=== PATIENT | female | born 1945 | race African-American/Black ===

== ENCOUNTER 2016-11-15 13:15 | Inpatient (IN) | payer MEDICARE ==
[~2016-11-15] VITALS: Ht 167.6 cm; Wt 67.1 kg
[~2016-11-15 13:15] MED LIST: ACET-804 PO; ACET500T33 PO; ALPR0.25 PO; AMIO200T2 PO; ASCO100065 PO; ASCO500T2 PO; ASPI-482 PO; ASPI-630 PO; ATOR20TA58 PO; CARV25TA2 PO; CIPR500S2 PO; DABI150C PO; DILT120T3 PO; DILT240C2 PO; FERR-26 PO; FURO80TA3 PO; FURO80TA72 PO; HYDR-2758 PO; INSU100C4 SQ; INSU100I17 SQ; INSU100V13 SQ; LISI10TA2 PO; LOSA25TA4 PO; METR500T8 PO; NITR0.4T22 SL; PANT40TA5 PO; PARO10TA3 PO; POTA20TA84 PO; RAMI2.5C PO; RIVA20TA2 PO; SPIR25TA3 PO; TICA90TA PO
--- NOTE | 2016-11-15 13:32 | PHYS DOC ---
Past Medical History Past Medical History: CAD, Diabetes-Type II, Diverticulitis, GERD, High Cholesterol, Hypertension Past Surgical History: Colectomy, Hysterectomy, Pacemaker, Other Additional Past Surgical Histo: defibrillator, right inguinal hernia repair Alcohol Use: None Drug Use: None Adult General Chief Complaint Chief Complaint: ALTERED MENTAL STATUS HPI HPI Patient is a 71 year old -[place] female who presents with status. According neighbor she was last seen normal yesterday. Today she's confused and unable follow commands or talk appropriately. Review of Systems Review of Systems Unable to obtain secondary to patient's current condition Current Medications Current Medications Current Medications Medications (Trade) Dose Ordered Sig/Luis Start Time Stop Time Status Last Admin Dose Admin Acetaminophen (Acetaminophen Supp) 650 mg PRN Q6HRS PRN 11/15/16 16:15 Acetaminophen (Tylenol) 650 mg PRN Q6HRS PRN 11/15/16 16:15 Aspirin (Ecotrin) 325 mg [id number] 11/16/16 08:00 Enoxaparin Sodium (Lovenox 40mg Syringe) 40 mg Q24H 11/15/16 17:00 Labetalol HCl (Normodyne) 10 mg PRN Q10MIN PRN 11/15/16 16:15 Ondansetron HCl (Zofran) 4 mg PRN Q6HRS PRN 11/15/16 16:15 Sodium Chloride 1,000 ml @ 100 mls/hr Q10H 11/15/16 16:07 Sodium Chloride (Normal Saline Flush) 3 ml QSHIFT PRN 11/15/16 16:15 Allergies Allergies Allergies Coded Allergies Type Severity Reaction Last Updated Verified amlodipine Allergy Intermediate 12/19/13 Yes morphine Allergy Intermediate hallucinations 12/19/13 Yes Physical Exam Physical Exam Constitutional: Well developed, well nourished, no acute distress, non-toxic appearance. [] HENT: Normocephalic, atraumatic, bilateral external ears normal, oropharynx moist, no oral exudates, nose normal. [] Eyes: PERRLA, EOMI, conjunctiva normal, no discharge. [] Neck: Normal range of motion, no tenderness, supple, no stridor. [] Cardiovascular:Heart rate regular rhythm, no murmur [] Lungs & Thorax: Bilateral breath sounds clear to auscultation [] Abdomen: Bowel sounds normal, soft, no tenderness, no masses, no pulsatile masses. [] Skin: Warm, dry, no erythema, no rash. [] Back: No tenderness, no CVA tenderness. [] Extremities: No tenderness, no cyanosis, no clubbing, ROM intact, no edema. [] Neurologic: Alert, unable to follow commands but moves all extremities. expressive aphasia noted Current Patient Data Vital Signs Vital Signs Date Time Temp Pulse Resp B/P (MAP) Pulse Ox O2 Delivery O2 Flow Rate FiO2 11/15/16 13:20 97.6 86 18 157/98 (117) 100 Room Air 97.6 Lab Values Laboratory Tests Test 11/15/16 12:20 11/15/16 13:25 Urine Collection Type Unknown Urine Color Yellow Urine Clarity Clear Urine pH 5.5 Urine Specific [place] 1.015 Urine Protein 100 mg/dL (NEG-TRACE) Urine Glucose (UA) Negative mg/dL (NEG) Urine Ketones (Stick) Negative mg/dL (NEG) Urine Blood Trace (NEG) Urine Nitrite Negative (NEG) Urine Bilirubin Negative (NEG) Urine Urobilinogen Dipstick 1.0 mg/dL (0.2 mg/dL) Urine Leukocyte Esterase Trace (NEG) Urine RBC 3-5 /HPF (0-2) Urine WBC 1-4 /HPF (0-4) Urine Squamous Epithelial Cells Mod /LPF Urine Amorphous Sediment Present /HPF Urine Bacteria 0 /HPF (0-FEW) Urine Opiates Screen Neg (NEG) Urine Methadone Screen Neg (NEG) Urine Barbiturates Neg (NEG) Urine Phencyclidine Screen Neg (NEG) Urine Amphetamine/Methamphetamine Neg (NEG) Urine Benzodiazepines Screen Neg (NEG) Urine Cocaine Screen Neg (NEG) Urine Cannabinoids Screen Neg (NEG) Urine Ethyl Alcohol Neg (NEG) White Blood Count 4.6 x10^3/uL (4.0-11.0) Red Blood Count 3.62 x10^6/uL (3.50-5.40) Hemoglobin 10.4 g/dL (12.0-15.5) L Hematocrit 32.8 % (36.0-47.0) L Mean Corpuscular Volume 90 fL (79-100) Mean Corpuscular Hemoglobin 29 pg (25-35) Mean Corpuscular Hemoglobin Concent 32 g/dL (31-37) Red Cell Distribution Width 16.1 % (11.5-14.5) H Platelet Count 136 x10^3/uL (140-400) L Neutrophils (%) (Auto) 57 % (31-73) Lymphocytes (%) (Auto) 29 % (24-48) Monocytes (%) (Auto) 11 % (0-9) H Eosinophils (%) (Auto) 2 % (0-3) Basophils (%) (Auto) 1 % (0-3) Neutrophils # (Auto) 2.6 x10^3uL (1.8-7.7) Lymphocytes # (Auto) 1.3 x10^3/uL (1.0-4.8) Monocytes # (Auto) 0.5 x10^3/uL (0.0-1.1) Eosinophils # (Auto) 0.1 x10^3/uL (0.0-0.7) Basophils # (Auto) 0.0 x10^3/uL (0.0-0.2) Prothrombin Time 14.8 SEC (11.7-14.0) H Prothrombin Time INR 1.2 (0.8-1.1) H PTT 33 SEC (24-38) Sodium Level 143 mmol/L (136-145) Potassium Level 4.1 mmol/L (3.5-5.1) Chloride Level 108 mmol/L (98-107) H Carbon Dioxide Level 28 mmol/L (21-32) Anion Gap 7 (6-14) Blood Urea Nitrogen 20 mg/dL (7-20) Creatinine 1.1 mg/dL (0.6-1.0) H Estimated GFR (Cockcroft-Gault) 59.1 Glucose Level 158 mg/dL (70-99) H Calcium Level 9.2 mg/dL (8.5-10.1) Magnesium Level 2.0 mg/dL (1.8-2.4) Total Bilirubin 0.7 mg/dL (0.2-1.0) Direct Bilirubin 0.3 mg/dL (0.0-0.2) H Aspartate Amino Transferase (AST) 28 U/L (15-37) Alanine Aminotransferase (ALT) 25 U/L (14-59) Alkaline Phosphatase 168 U/L (46-116) H Ammonia 16 mcmol/L (11-34) Creatine Kinase 73 U/L (26-192) Creatine Kinase MB (Mass) 1.5 ng/mL (0.0-3.6) Creatine Kinase MB Relative Index 2.1 % (0-4) Troponin I Quantitative < 0.017 ng/mL (0.000-0.055) VU-[id number]-Type Natriuretic Peptide 2632 pg/mL (0-124) H Total Protein 7.2 g/dL (6.4-8.2) Albumin 3.5 g/dL (3.4-5.0) Salicylates Level < 2.8 mg/dL (2.8-20.0) L Salicylate Last Dose Date Unknown Salicylate Last Dose Time Unknown Acetaminophen Level < 2 mcg/ml (10-30) L Acetaminophen Last Dose Date Unknown Acetaminophen Last Dose Time Unknown Ethyl Alcohol Level < 10 mg/dL (0-10) Laboratory Tests 11/15/16 13:25 Laboratory Tests 11/15/16 13:25 EKG EKG EKG shows irregular rhythm with rate of [address] elevations, T- wave inversions noted in leads V4 V5 V6, 1 and aVL in addition to lead 2, left axis deviation noted, QTC 425 ms, as interpreted by me. Radiology/Procedures Radiology/Procedures [address] [address] IMAGING REPORT Signed PATIENT: KIN LUJAN ACCOUNT: [id number] : 1945 LOCATION: ER AGE: 71 SEX: F EXAM STATUS: REG ER ORD. PHYSICIAN: NICO HERNANDEZ MD REASON: AMS PROCEDURE: PORTABLE CHEST 1V Portable chest, 11/15/2016: History: Altered mental status Comparison is made to a study from 02/03/2014. A left-sided transvenous pacemaker remains in place with 2 leads extending in the right heart. The heart is generally enlarged. The pulmonary vascularity is normal. No pulmonary infiltrates are seen. There is no evidence of pleural fluid. IMPRESSION: 1. Cardiomegaly. 2. No acute abnormality is detected. DICTATED and SIGNED BY: MAGEN ALMEIDA MD DATE: 11/15/16 [id number] CC: NICO HERNANDEZ MD; UNKNOWN PCP NAME ~ [address] [address] IMAGING REPORT Signed PATIENT: KIN LUJAN ACCOUNT: [id number] : 1945 LOCATION: ER AGE: 71 SEX: F EXAM STATUS: REG ER ORD. PHYSICIAN: NICO HERNANDEZ MD REASON: AMS PROCEDURE: CT HEAD WO CONTRAST CT of the head without contrast, 11/15/2016: History: Slurred speech, altered mental status The ventricles are within normal limits in size. There is no shift of the midline structures. There is no evidence of acute intracranial hemorrhage or mass effect. There is a small left frontal lobe lucency involving the deep white matter and the cortex, compatible with an old infarct. There are small lucencies along the lateral aspect of the left basal ganglia and the lateral aspect of the right caudate nucleus compatible with old lacunar infarcts. The cerebellum and brainstem are unremarkable. No abnormal extra-axial fluid collection or mass is seen. IMPRESSION: 1. 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 2. No acute intracranial abnormality is detected. PQRS Compliance Statement: One or more of the following individualized dose reduction techniques were utilized for this examination: 1. Automated exposure control 2. Adjustment of the mA and/or kV according to patient size 3. Use of iterative reconstruction technique DICTATED and SIGNED BY: MAGEN ALMEIDA MD DATE: 11/15/161423 CC: NICO HERNANDEZ MD; UNKNOWN PCP NAME ~ Impressions: Altered mental status A. fib Course & Med Decision Making Course & Med Decision Making Pertinent Labs and Imaging studies reviewed. (See chart for details) Her last known well time is unknown. She is not a TPA candidate. CT head does not show any acute abnormality's. Were unsure if her A. fib is new onset. Patient is being admitted to the hospitalist with neurology consultation and cardiology consultation. Patient cannot have an MRI obtained since she has a pacemaker. She is in stable condition being admitted this time with expressive aphasia Dragon Disclaimer Dragon Disclaimer This electronic medical record was generated, in whole or in part, using a voice recognition dictation system. Departure Departure Impression: Primary Impression: Altered mental status Disposition: ADMITTED INPATIENT Admitting Physician: Stella Martin Condition: STABLE Referrals: NON,STAFF (PCP) Problem Qualifiers Primary Impression: Altered mental status Altered mental status type: unspecified Qualified Codes: R41.82 - Altered mental status, unspecified NICO HERNANDEZ MD Nov 15, 2016 13:32
[2016-11-15 13:51] LABS: BASO % 1 % (0-3); EOS % 2 % (0-3); HEMATOCRIT 32.8 % (36.0-47.0); HEMOGLOBIN 10.4 g/dL (12.0-15.5); LYMPH # 1.3 x10^3/uL (1.0-4.8); LYMPH % 29 % (24-48); MEAN CORPUSCULAR HEMOGLOBIN 29 pg (25-35); MEAN CORPUSCULAR HGB CONC 32 g/dL (31-37); MEAN CORPUSCULAR VOLUME 90 fL (79-100); MONO % 11 % (0-9); NEUT % 57 % (31-73); PLATELET COUNT 136 x10^3/uL (140-400); RED BLOOD COUNT 3.62 x10^6/uL (3.50-5.40); RED CELL DISTRIBUTION WIDTH 16.1 % (11.5-14.5); WHITE BLOOD COUNT 4.6 x10^3/uL (4.0-11.0)
--- NOTE | 2016-11-15 13:54 | RAD ---
Portable chest, 11/15/2016: History: Altered mental status Comparison is made to a study from 02/03/2014. A left-sided transvenous pacemaker remains in place with 2 leads extending in the right heart. The heart is generally enlarged. The pulmonary vascularity is normal. No pulmonary infiltrates are seen. There is no evidence of pleural fluid. IMPRESSION: 1. Cardiomegaly. 2. No acute abnormality is detected.
[2016-11-15 13:55] LABS: CALCIUM 9.2 mg/dL (8.5-10.1); CREATININE 1.1 mg/dL (0.6-1.0); GFR 59.1; POTASSIUM 4.1 mmol/L (3.5-5.1)
[2016-11-15 13:57] LABS: INR 1.2 (0.8-1.1); PROTHROMBIN TIME PATIENT 14.8 SEC (11.7-14.0)
[2016-11-15 13:58] LABS: ETHANOL < 10 mg/dL (0-10)
[2016-11-15 14:01] LABS: ALBUMIN 3.5 g/dL (3.4-5.0); DIRECT BILIRUBIN 0.3 mg/dL (0.0-0.2); TOTAL BILIRUBIN 0.7 mg/dL (0.2-1.0); TOTAL PROTEIN 7.2 g/dL (6.4-8.2)
[2016-11-15 14:08] LABS: CKMB MASS 1.5 ng/mL (0.0-3.6)
--- NOTE | 2016-11-15 14:13 | EKG ---
[facility] [address] [place] [address] Test Date: 2016-11-15 Test Time: 13:51:44 Pat Name: KIN LUJAN Department: Room: Gender: F [employer]: : 1945 Requested By: NICO HERNANDEZ Order Number: [id number] Reading MD: Briana Ledezma Measurements Intervals [place] Rate: 76 P: MN: QRS: -16 QRSD: 84 T: 169 QT: 374 QTc: 425 Interpretive Statements ATRIAL FIBRILLATION LEFTWARD AXIS CONSIDER LEFT VENTRICULAR HYPERTROPHY ST & T ABNORMALITY, CONSIDER LATERAL ISCHEMIA T ABNORMALITY IN INFEROLATERAL LEADS ABNORMAL ECG Electronically Signed On 11-19-2016 15:21:49 CDT by Briana Ledezma
--- NOTE | 2016-11-15 14:29 | RAD ---
CT of the head without contrast, 11/15/2016: History: Slurred speech, altered mental status The ventricles are within normal limits in size. There is no shift of the midline structures. There is no evidence of acute intracranial hemorrhage or mass effect. There is a small left frontal lobe lucency involving the deep white matter and the cortex, compatible with an old infarct. There are small lucencies along the lateral aspect of the left basal ganglia and the lateral aspect of the right caudate nucleus compatible with old lacunar infarcts. The cerebellum and brainstem are unremarkable. No abnormal extra-axial fluid collection or mass is seen. IMPRESSION: 1. 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 2. No acute intracranial abnormality is detected. PQRS Compliance Statement: One or more of the following individualized dose reduction techniques were utilized for this examination: 1. Automated exposure control 2. Adjustment of the mA and/or kV according to patient size 3. Use of iterative reconstruction technique
[2016-11-15 14:43] LABS: BILIRUBIN,URINE NEGATIVE (NEG); GLUCOSE,URINE NEGATIVE (NEG); NITRITE,URINE NEGATIVE (NEG); PH,URINE 5.5; PROTEIN,URINE 100 mg/dL (NEG-TRACE)
[2016-11-15 14:57] LABS: BACTERIA,URINE 0 /HPF (0-FEW); SQUAMOUS EPITHELIAL CELL,UR MOD /LPF
[2016-11-15 15:02] LABS: BARBITURATES NEG (NEG); BENZODIAZEPINES NEG (NEG); CANNABINOIDS NEG (NEG); COCAINE NEG (NEG); METHADONE NEG (NEG); OPIATES NEG (NEG); PHENCYCLIDINE NEG (NEG)
[2016-11-15] MEDS ORDERED: ONDANSETRON PF 4 MG/2 ML VIAL. IV PRN ×3 (15:45→16:45)
[2016-11-15] MEDS ORDERED: 0.9 % SODIUM CHLORIDE 10 ML DISP.SYRIN. IV PRN (16:15)
[2016-11-15] MEDS ORDERED: LABETALOL 20 MG/4 ML DISP.SYRIN. IV PRN (16:15)
[2016-11-15] MEDS ORDERED: ACETAMINOPHEN 650 MG SUPP.RECT. PR PRN (16:15)
[2016-11-15] MEDS ORDERED: ACETAMINOPHEN 325 MG TABLET. PO PRN ×2 (16:15→16:45)
--- NOTE | 2016-11-15 16:20 | ACF ---
Admit Criteria Forms Admit Criteria Forms Admit Criteria Forms MENTAL STATUS CHANGE Clinical Indications for Inpatient Care (Place 'X' for any and all applicable criteria): Ongoing inpatient care may be needed for 1 or more of the following(1)(2)(3)(5)( 6): [ ]I. Suspected serious etiology (eg, medical disorder, ICE PULLER event) of altered mental status [ ]II. Danger to self or others not manageable at lower level of care [ ]III. Grave disability (eg, inability to perform self care necessary at lower level of care) [ ]IV. Agitation or inappropriate behavior interfering with care for primary condition (eg, attempting to discontinue lines or drains prematurely, unable to cooperate with respiratory care) [ ]V. Delirium [A] [D][E] as described by 1 or more of the following(26): [ ]a) Delirium due to alcohol or sedative [F] withdrawal [ ]b) Delirium of uncertain etiology that has not responded to appropriate empiric treatment [ ]c) Delirium that prevents performance of a life-sustaining function (eg, feeding or hydrating oneself) [X ]. General contraindications and/or Inappropriate clinical situations for Observational Care in patients with Mental Status Change, when ANY ONE of the following is required: [ X]a) Prediction of prolongation of LOS based on ANY ONE of the following may be considered as a contraindication for observational care 2, 3, 4, 5, 6, 7, 8, 9, 10, 11 [ X]i) Age > 65 yrs. [ ]ii) Patient arriving by ambulance [ ]iii) Patient with high acuity [ ]iv) Patient requiring vital sign monitoring [ ]v) Patient on IV medication [ ]b) Systolic blood pressures greater than or equal to 180mmHg 3, 12 [ ]c) Patient with altered mental status including delirium and other alteration of consciousness, (3) [ ]d) Patient whose discharge disposition will be to a nursing home home or rehabilitation home should not be managed in Emergency Department Observation Unit. CMS rule requires 3 days hospital stay before such placement.3,13 [ ]e) Patient with failure to thrive due to broad array of etiologies 3,16,17 [ ]f) Inability to ambulate 3,14 Extended stay beyond goal length of stay for the primary condition may be needed until ALL of the following are present(3)(5): [ ]a) Underlying medical etiology of mental status change is absent, or has been established and adequately treated [ ]b) Danger to self or others is absent or manageable at lower level of care. [ ]c) Behavior crisis management, including physical or chemical restraints, is not required or available at lower level of car [ ]d) Substance or alcohol withdrawal is absent or manageable at lower level of care. [ ]e) Behavioral symptoms (eg, agitation, somnolence, inappropriate behavior) are absent, or are manageable at lower level of care. The original [facility] [employer] content created by [facility] has been revised. The portions of the content which have been revised are identified through the use of italic text or in bold, and [facility] has neither reviewed nor approved the modified material. All other unmodified content is copyright [facility]. Please see references footnoted in the original [facility] [employer] edition 2016 KM WARD Nov 15, 2016 16:20
--- NOTE | 2016-11-15 16:22 | PDOC2 ---
NEUROLOGY CONSULT Date of Admission Date of Admission DATE: 11/15/16 TIME: 16:14 Reason for Consult Reason for Consult: Altered mental status Referring Physician Referring Physician: Hospitalist Source Source: Chart review, Patient History of Present Illness History of Present Illness The patient is a 71-year-old female brought in by a neighbor with altered mental status. Last known normal was yesterday. The previous records show that the patient has a history of atrial fibrillation on Pradexa and had a cardioversion done here 3 years ago. She has an AICD. The patient is not a reliable historian but does deny a history of stroke. Past Medical History Cardiovascular: AFIB, CAD, CHF Pulmonary: COPD, Pulmonary embolus GI: Peptic Ulcer disease Renal/: UTI, Urinary Incontinence Endocrine: Diabetes Past Surgical History Past Surgical History: Pacemaker (AICD), Other (coronary stent) Family History Family History: Hypertension Social History Social History Not reliably obtained, no mention of any smoking or alcohol, apparently lives alone, family not available Current Medications Current Medications Current Medications Ondansetron HCl (Zofran) 4 mg PRN Q8HRS PRN IV NAUSEA/VOMITING; Start 11/15/16 at 15:45; Stop 11/16/16 at 15:44 Sodium Chloride (Normal Saline Flush) 3 ml QSHIFT PRN IV AFTER MEDS AND BLOOD DRAWS; Start 11/15/16 at 16:15; Status UNV Sodium Chloride 1,000 ml @ 100 mls/hr Q10H IV ; Start 11/15/16 at 16:07; Status UNV Aspirin (Ecotrin) 325 mg DAILYWBKFT PO ; Start 11/16/16 at 08:00; Status UNV Labetalol HCl (Normodyne) 10 mg PRN Q10MIN PRN IV HYPERTENSION, SEE COMMENTS; Start 11/15/16 at 16:15; Status UNV Acetaminophen (Tylenol) 650 mg PRN Q6HRS PRN PO FEVER; Start 11/15/16 at 16:15 ; Status UNV Acetaminophen (Acetaminophen Supp) 650 mg PRN Q6HRS PRN NE FEVER; Start at 16:15; Status UNV Ondansetron HCl (Zofran) 4 mg PRN Q6HRS PRN IV NAUSEA/VOMITING; Start 11/15/16 at 16:15; Status UNV Enoxaparin Sodium (Lovenox 40mg Syringe) 40 mg Q24H SQ ; Start 11/15/16 at 16:15 ; Status UNV Active Scripts Active Pradaxa (Dabigatran Etexilate Mesylate) 150 Mg Capsule 150 Mg PO BID Reported Amiodarone Hcl 200 Mg Tablet 1 Tab PO DAILY Novolog Flexpen (Insulin Aspart) 100 Unit/1 Ml Insuln.pen 10 Unit SQ TIDWMEALS Levemir (Insulin Detemir) 100 Unit/1 Ml Vial 32 Unit SQ HS Metronidazole 500 Mg Tablet 1 Tab PO TID Hydrocodone-Apap 5-325 (Hydrocodone Bit/Acetaminophen) 1 Each Tablet 1 Tab PO Q4HRS PRN Cipro (Ciprofloxacin) 500 Mg/5 Ml Sumaya.mc.rec 500 Mg PO BID 7 Days K-Tab ER (Potassium Chloride) 20 Meq Tablet.er 20 Meq PO DAILY Paroxetine Hcl 10 Mg Tablet 10 Mg PO HS Vitamin C (Ascorbic Acid) 1,000 Mg Tab.chew 1,000 Mg PO DAILY Lisinopril 10 Mg Tablet 1 Tab PO DAILY Lasix (Furosemide) 80 Mg Tablet 1 Tab PO DAILY Cardizem Cd (Diltiazem Hcl) 240 Mg Cap.er.24h 1 Cap PO DAILY NITROGLYCERIN SubLingual (Nitroglycerin) 0.4 Mg Tab.subl 0.4 Mg SL PRN Q5MIN PRN Losartan Potassium 25 Mg Tablet 25 Mg PO DAILY Levemir (Insulin Detemir) 100 Unit/1 Ml Vial 38 Unit SQ HS Novolog (Insulin Aspart) 100 Unit/1 Ml Cartridge 14 Unit SQ TIDWMEALS Atorvastatin Calcium 20 Mg Tablet 40 Mg PO HS Aspirin 81 Mg Tab.chew 81 Mg PO DAILY Vitamin C (Ascorbic Acid) 500 Mg Tablet 500 Mg PO DAILY Carvedilol 25 Mg Tablet 25 Mg PO BIDWMEALS Allergies Allergies: Coded Allergies: amlodipine (Verified Allergy, Intermediate, 12/19/13) morphine (Verified Allergy, Intermediate, hallucinations, 12/19/13) ROS Review of System Not reliably obtained Physical Exam Physical Examination PHYSICAL EXAMINATION: Vital signs: see above. General appearance is normal and in no acute distress. HEENT: Normocephalic and nontraumatic. Eyes, nose, ears, and throat are unremarkable. Neck is supple. No lymphadenopathy. No bruits are heard over the carotid artery. No crepitus. NEUROLOGICAL EXAMINATION: Mental Status Examination: Alert. She has expressive and receptive aphasia. She does reply "okay" to numerous questions. Pupils are equal round and reactive to light and accommodation. Extraocular movements are intact. Visual field exam shows no defect on the direct confrontation. No motor or sensory deficits on the facial exam. Uvula in the midline and the soft palate elevated symmetrically. No deviation of the tongue to any direction. Gross hearing is normal. Shoulder shrug normal. Muscle tone is normal. Muscle strength is 5. Deep tendon reflexes are 2+ all around. Plantar reflex is with flexion response bilaterally. She did not cooperate with kqrhxo-[id number] testing. I did not check gait. She responds to pinprick in all 4 extremities.. Vitals VITALS Vital Signs Date Time Temp Pulse Resp B/P (MAP) Pulse Ox O2 Delivery O2 Flow Rate FiO2 11/15/16 13:20 97.6 86 18 157/98 (117) 100 Room Air 97.6 Labs Labs Laboratory Tests Test 11/15/16 12:20 11/15/16 13:25 Urine Collection Type Unknown Urine Color Yellow Urine Clarity Clear Urine pH 5.5 Urine Specific [place] 1.015 Urine Protein 100 mg/dL (NEG-TRACE) Urine Glucose (UA) Negative mg/dL (NEG) Urine Ketones (Stick) Negative mg/dL (NEG) Urine Blood Trace (NEG) Urine Nitrite Negative (NEG) Urine Bilirubin Negative (NEG) Urine Urobilinogen Dipstick 1.0 mg/dL (0.2 mg/dL) Urine Leukocyte Esterase Trace (NEG) Urine RBC 3-5 /HPF (0-2) Urine WBC 1-4 /HPF (0-4) Urine Squamous Epithelial Cells Mod /LPF Urine Amorphous Sediment Present /HPF Urine Bacteria 0 /HPF (0-FEW) Urine Opiates Screen Neg (NEG) Urine Methadone Screen Neg (NEG) Urine Barbiturates Neg (NEG) Urine Phencyclidine Screen Neg (NEG) Urine Amphetamine/Methamphetamine Neg (NEG) Urine Benzodiazepines Screen Neg (NEG) Urine Cocaine Screen Neg (NEG) Urine Cannabinoids Screen Neg (NEG) Urine Ethyl Alcohol Neg (NEG) White Blood Count 4.6 x10^3/uL (4.0-11.0) Red Blood Count 3.62 x10^6/uL (3.50-5.40) Hemoglobin 10.4 g/dL (12.0-15.5) Hematocrit 32.8 % (36.0-47.0) Mean Corpuscular Volume 90 fL (79-100) Mean Corpuscular Hemoglobin 29 pg (25-35) Mean Corpuscular Hemoglobin Concent 32 g/dL (31-37) Red Cell Distribution Width 16.1 % (11.5-14.5) Platelet Count 136 x10^3/uL (140-400) Neutrophils (%) (Auto) 57 % (31-73) Lymphocytes (%) (Auto) 29 % (24-48) Monocytes (%) (Auto) 11 % (0-9) Eosinophils (%) (Auto) 2 % (0-3) Basophils (%) (Auto) 1 % (0-3) Neutrophils # (Auto) 2.6 x10^3uL (1.8-7.7) Lymphocytes # (Auto) 1.3 x10^3/uL (1.0-4.8) Monocytes # (Auto) 0.5 x10^3/uL (0.0-1.1) Eosinophils # (Auto) 0.1 x10^3/uL (0.0-0.7) Basophils # (Auto) 0.0 x10^3/uL (0.0-0.2) Prothrombin Time 14.8 SEC (11.7-14.0) Prothromb Time International Ratio 1.2 (0.8-1.1) Activated Partial Thromboplast Time 33 SEC (24-38) Sodium Level 143 mmol/L (136-145) Potassium Level 4.1 mmol/L (3.5-5.1) Chloride Level 108 mmol/L (98-107) Carbon Dioxide Level 28 mmol/L (21-32) Anion Gap 7 (6-14) Blood Urea Nitrogen 20 mg/dL (7-20) Creatinine 1.1 mg/dL (0.6-1.0) Estimated GFR (Cockcroft-Gault) 59.1 Glucose Level 158 mg/dL (70-99) Calcium Level 9.2 mg/dL (8.5-10.1) Magnesium Level 2.0 mg/dL (1.8-2.4) Total Bilirubin 0.7 mg/dL (0.2-1.0) Direct Bilirubin 0.3 mg/dL (0.0-0.2) Aspartate Amino Transf (AST/SGOT) 28 U/L (15-37) Alanine Aminotransferase (ALT/SGPT) 25 U/L (14-59) Alkaline Phosphatase 168 U/L (46-116) Ammonia 16 mcmol/L (11-34) Creatine Kinase 73 U/L (26-192) Creatine Kinase MB (Mass) 1.5 ng/mL (0.0-3.6) Creatine Kinase MB Relative Index 2.1 % (0-4) Troponin I Quantitative < 0.017 ng/mL (0.000-0.055) TV-Cer-C-Type Natriuretic Peptide 2632 pg/mL (0-124) Total Protein 7.2 g/dL (6.4-8.2) Albumin 3.5 g/dL (3.4-5.0) Salicylates Level < 2.8 mg/dL (2.8-20.0) Salicylate Last Dose Date Unknown Salicylate Last Dose Time Unknown Acetaminophen Level < 2 mcg/ml (10-30) Acetaminophen Last Dose Date Unknown Acetaminophen Last Dose Time Unknown Ethyl Alcohol Level < 10 mg/dL (0-10) Laboratory Tests Test 11/15/16 12:20 11/15/16 13:25 Urine Collection Type Unknown Urine Color Yellow Urine Clarity Clear Urine pH 5.5 Urine Specific [place] 1.015 Urine Protein 100 mg/dL (NEG-TRACE) Urine Glucose (UA) Negative mg/dL (NEG) Urine Ketones (Stick) Negative mg/dL (NEG) Urine Blood Trace (NEG) Urine Nitrite Negative (NEG) Urine Bilirubin Negative (NEG) Urine Urobilinogen Dipstick 1.0 mg/dL (0.2 mg/dL) Urine Leukocyte Esterase Trace (NEG) Urine RBC 3-5 /HPF (0-2) Urine WBC 1-4 /HPF (0-4) Urine Squamous Epithelial Cells Mod /LPF Urine Amorphous Sediment Present /HPF Urine Bacteria 0 /HPF (0-FEW) Urine Opiates Screen Neg (NEG) Urine Methadone Screen Neg (NEG) Urine Barbiturates Neg (NEG) Urine Phencyclidine Screen Neg (NEG) Urine Amphetamine/Methamphetamine Neg (NEG) Urine Benzodiazepines Screen Neg (NEG) Urine Cocaine Screen Neg (NEG) Urine Cannabinoids Screen Neg (NEG) Urine Ethyl Alcohol Neg (NEG) White Blood Count 4.6 x10^3/uL (4.0-11.0) Red Blood Count 3.62 x10^6/uL (3.50-5.40) Hemoglobin 10.4 g/dL (12.0-15.5) Hematocrit 32.8 % (36.0-47.0) Mean Corpuscular Volume 90 fL (79-100) Mean Corpuscular Hemoglobin 29 pg (25-35) Mean Corpuscular Hemoglobin Concent 32 g/dL (31-37) Red Cell Distribution Width 16.1 % (11.5-14.5) Platelet Count 136 x10^3/uL (140-400) Neutrophils (%) (Auto) 57 % (31-73) Lymphocytes (%) (Auto) 29 % (24-48) Monocytes (%) (Auto) 11 % (0-9) Eosinophils (%) (Auto) 2 % (0-3) Basophils (%) (Auto) 1 % (0-3) Neutrophils # (Auto) 2.6 x10^3uL (1.8-7.7) Lymphocytes # (Auto) 1.3 x10^3/uL (1.0-4.8) Monocytes # (Auto) 0.5 x10^3/uL (0.0-1.1) Eosinophils # (Auto) 0.1 x10^3/uL (0.0-0.7) Basophils # (Auto) 0.0 x10^3/uL (0.0-0.2) Prothrombin Time 14.8 SEC (11.7-14.0) Prothromb Time International Ratio 1.2 (0.8-1.1) Activated Partial Thromboplast Time 33 SEC (24-38) Sodium Level 143 mmol/L (136-145) Potassium Level 4.1 mmol/L (3.5-5.1) Chloride Level 108 mmol/L (98-107) Carbon Dioxide Level 28 mmol/L (21-32) Anion Gap 7 (6-14) Blood Urea Nitrogen 20 mg/dL (7-20) Creatinine 1.1 mg/dL (0.6-1.0) Estimated GFR (Cockcroft-Gault) 59.1 Glucose Level 158 mg/dL (70-99) Calcium Level 9.2 mg/dL (8.5-10.1) Magnesium Level 2.0 mg/dL (1.8-2.4) Total Bilirubin 0.7 mg/dL (0.2-1.0) Direct Bilirubin 0.3 mg/dL (0.0-0.2) Aspartate Amino Transf (AST/SGOT) 28 U/L (15-37) Alanine Aminotransferase (ALT/SGPT) 25 U/L (14-59) Alkaline Phosphatase 168 U/L (46-116) Ammonia 16 mcmol/L (11-34) Creatine Kinase 73 U/L (26-192) Creatine Kinase MB (Mass) 1.5 ng/mL (0.0-3.6) Creatine Kinase MB Relative Index 2.1 % (0-4) Troponin I Quantitative < 0.017 ng/mL (0.000-0.055) WO-Tjw-G-Type Natriuretic Peptide 2632 pg/mL (0-124) Total Protein 7.2 g/dL (6.4-8.2) Albumin 3.5 g/dL (3.4-5.0) Salicylates Level < 2.8 mg/dL (2.8-20.0) Salicylate Last Dose Date Unknown Salicylate Last Dose Time Unknown Acetaminophen Level < 2 mcg/ml (10-30) Acetaminophen Last Dose Date Unknown Acetaminophen Last Dose Time Unknown Ethyl Alcohol Level < 10 mg/dL (0-10) Images Images CT head: The ventricles are within normal limits in size. There is no shift of the midline structures. There is no evidence of acute intracranial hemorrhage or mass effect. There is a small left frontal lobe lucency involving the deep white matter and the cortex, compatible with an old infarct. There are small lucencies along the lateral aspect of the left basal ganglia and the lateral aspect of the right caudate nucleus compatible with old lacunar infarcts. The cerebellum and brainstem are unremarkable. No abnormal extra-axial fluid collection or mass is seen. IMPRESSION: 1. 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 2. No acute intracranial abnormality is detected. Assessment/Plan Assessment/Plan Impression: Mental status changes representing a global aphasia but without significant assistance. CT head shows old left frontal infarct so I will keep in mind the possibility of metabolic problems and even seizure activity. I find no evidence of central nervous system infection. Given the atrial fibrillation, she most likely had a new left frontal infarct sparing the motor strip. Recommendations: Hold anticoagulation for one or 2 days She is unable to have a MRI because of the AICD, so I will check a CT angiogram tomorrow and perhaps a follow-up head CT the next day Cardiology consult and echocardiogram Lovenox Rehabilitation modalities Aspirin See stroke orders Thank you for letting me help with the patient's care. ANUP BRITTON MD Nov 15, 2016 16:22
[2016-11-15] MEDS ORDERED: IOHEXOL 350 MG/ML 100 ML VIAL. IV ONE (16:30)
[2016-11-15] MEDS ORDERED: DEXTROSE 50% 25 GM / 50ML DISP.SYRIN. IV PRN (16:45)
[2016-11-15] MEDS ORDERED: DOCUSATE SODIUM 100 MG CAPSULE. PO PRN (16:45)
[2016-11-15] MEDS ORDERED: hydrALAZINE 20 MG/ML VIAL. IVP PRN (16:45)
--- NOTE | 2016-11-15 16:55 | PDOC1 ---
History and Physical Date of Admission Date of Admission 11/15/16 Identification/Chief Complaint Chief Complaint AMS Problems: Source Source: Chart review History of Present Illness History of Present Illness HPI HPI Patient is a 71 year old -[place] female with h/o afib, stroke presents with status. pt cannot provide any history. when i asked her questions, she looks calm but not understanding, kept saying" i dont know, i dont know what you mean". as per ERP, pt lives alone ,her neighbor found her normal yesterday but acting abnormal today and then called EMS. Today she's confused and unable follow commands or talk appropriately. head CT showed old stroke. Afib. Past Medical History Cardiovascular: AFIB, CAD, CHF Pulmonary: COPD, Pulmonary embolus CENTRAL NERVOUS SYSTEM: Migraine GI: Peptic Ulcer disease Heme/Onc: No pertinent hx Hepatobiliary: No pertinent hx Psych: No pertinent hx Rheumatologic: No pertinent hx Renal/: UTI, Urinary Incontinence Endocrine: Diabetes Past Surgical History Past Surgical History: Pacemaker (AICD), Other (coronary stent) Family History Family History: Coronary Artery Disease Social History Smoke: No ALCOHOL: none Drugs: None Current Problem List Problem List Problems Medical Problems: (1) Altered mental status Status: Acute Current Medications Current Medications Current Medications Medications (Trade) Dose Ordered Sig/Luis Start Time Stop Time Status Last Admin Dose Admin Acetaminophen (Acetaminophen Supp) 650 mg PRN Q6HRS PRN 11/15/16 16:15 Acetaminophen (Tylenol) 650 mg PRN Q6HRS PRN 11/15/16 16:45 UNV Aspirin (Ecotrin) 325 mg DAILYWBKFT 11/16/16 08:00 Docusate Sodium (Colace) 100 mg PRN DAILY PRN 11/15/16 16:45 UNV Enoxaparin Sodium (Lovenox 40mg Syringe) 40 mg Q24H 11/15/16 17:00 Hydralazine HCl (Apresoline) 10 mg PRN Q4HRS PRN 11/15/16 16:45 UNV Iohexol (Omnipaque 350 Mg/ml) 60 ml 1X ONCE 11/15/16 16:30 11/15/16 16:31 DC 11/15/16 16:40 60 ML Labetalol HCl (Normodyne) 10 mg PRN Q10MIN PRN 7/12/17 16:15 Ondansetron HCl (Zofran) 4 mg PRN Q6HRS PRN 11/15/16 16:45 UNV Sodium Chloride 1,000 ml @ 100 mls/hr Q10H 11/15/16 16:07 Sodium Chloride (Normal Saline Flush) 3 ml QSHIFT PRN 11/15/16 16:15 Allergies Allergies Allergies Coded Allergies Type Severity Reaction Last Updated Verified amlodipine Allergy Intermediate 12/19/13 Yes morphine Allergy Intermediate hallucinations 12/19/13 Yes ROS Review of System CONSTITUTIONAL: No fever or chills EYES: No recent changes SKIN: No rash or itching CARDIOVASCULAR: No chest pain, syncope, palpitations, or edema RESPIRATORY: No SOB or cough GASTROINTESTINAL: No nausea, vomiting or abdominal pain NEUROLOGICAL: No headaches or weakness ENDOCRINE: No cold or heat intolerance GENITOURINARY: No urgency or frequency of urination MUSCULOSKELETAL: No back pain or joint pain LYMPHATICS: No enlarged lymph nodes PSYCHIATRIC: No anxiety or depression Physical Exam Physical Exam GEN.: No apparent distress, awake, calm, but cannot talk appropriately or answer questions well, not really follow any commands, but can squeeze my fingers bl ok. HEENT: Head is normocephalic, atraumatic NECK: Supple. LUNGS: Clear to auscultation. HEART: RRR, S1, S2 present. Peripheral pulses intact ABDOMEN: Soft, nontender. Positive bowel sounds. EXTREMITIES: Without any cyanosis. NEUROLOGIC: Normal speech, normal tone PSYCHIATRIC: Normal affect, normal mood. SKIN: No ulcerations Vitals Vitals Vital Signs Date Time Temp Pulse Resp B/P (MAP) Pulse Ox O2 Delivery O2 Flow Rate FiO2 11/15/16 13:20 97.6 86 18 157/98 (117) 100 Room Air 97.6 Labs Labs Laboratory Tests Test 11/15/16 12:20 11/15/16 13:25 Urine Collection Type Unknown Urine Color Yellow Urine Clarity Clear Urine pH 5.5 Urine Specific [place] 1.015 Urine Protein 100 mg/dL (NEG-TRACE) Urine Glucose (UA) Negative mg/dL (NEG) Urine Ketones (Stick) Negative mg/dL (NEG) Urine Blood Trace (NEG) Urine Nitrite Negative (NEG) Urine Bilirubin Negative (NEG) Urine Urobilinogen Dipstick 1.0 mg/dL (0.2 mg/dL) Urine Leukocyte Esterase Trace (NEG) Urine RBC 3-5 /HPF (0-2) Urine WBC 1-4 /HPF (0-4) Urine Squamous Epithelial Cells Mod /LPF Urine Amorphous Sediment Present /HPF Urine Bacteria 0 /HPF (0-FEW) Urine Opiates Screen Neg (NEG) Urine Methadone Screen Neg (NEG) Urine Barbiturates Neg (NEG) Urine Phencyclidine Screen Neg (NEG) Urine Amphetamine/Methamphetamine Neg (NEG) Urine Benzodiazepines Screen Neg (NEG) Urine Cocaine Screen Neg (NEG) Urine Cannabinoids Screen Neg (NEG) Urine Ethyl Alcohol Neg (NEG) White Blood Count 4.6 x10^3/uL (4.0-11.0) Red Blood Count 3.62 x10^6/uL (3.50-5.40) Hemoglobin 10.4 g/dL (12.0-15.5) Hematocrit 32.8 % (36.0-47.0) Mean Corpuscular Volume 90 fL (79-100) Mean Corpuscular Hemoglobin 29 pg (25-35) Mean Corpuscular Hemoglobin Concent 32 g/dL (31-37) Red Cell Distribution Width 16.1 % (11.5-14.5) Platelet Count 136 x10^3/uL (140-400) Neutrophils (%) (Auto) 57 % (31-73) Lymphocytes (%) (Auto) 29 % (24-48) Monocytes (%) (Auto) 11 % (0-9) Eosinophils (%) (Auto) 2 % (0-3) Basophils (%) (Auto) 1 % (0-3) Neutrophils # (Auto) 2.6 x10^3uL (1.8-7.7) Lymphocytes # (Auto) 1.3 x10^3/uL (1.0-4.8) Monocytes # (Auto) 0.5 x10^3/uL (0.0-1.1) Eosinophils # (Auto) 0.1 x10^3/uL (0.0-0.7) Basophils # (Auto) 0.0 x10^3/uL (0.0-0.2) Prothrombin Time 14.8 SEC (11.7-14.0) Prothromb Time International Ratio 1.2 (0.8-1.1) Activated Partial Thromboplast Time 33 SEC (24-38) Sodium Level 143 mmol/L (136-145) Potassium Level 4.1 mmol/L (3.5-5.1) Chloride Level 108 mmol/L (98-107) Carbon Dioxide Level 28 mmol/L (21-32) Anion Gap 7 (6-14) Blood Urea Nitrogen 20 mg/dL (7-20) Creatinine 1.1 mg/dL (0.6-1.0) Estimated GFR (Cockcroft-Gault) 59.1 Glucose Level 158 mg/dL (70-99) Calcium Level 9.2 mg/dL (8.5-10.1) Magnesium Level 2.0 mg/dL (1.8-2.4) Total Bilirubin 0.7 mg/dL (0.2-1.0) Direct Bilirubin 0.3 mg/dL (0.0-0.2) Aspartate Amino Transf (AST/SGOT) 28 U/L (15-37) Alanine Aminotransferase (ALT/SGPT) 25 U/L (14-59) Alkaline Phosphatase 168 U/L (46-116) Ammonia 16 mcmol/L (11-34) Creatine Kinase 73 U/L (26-192) Creatine Kinase MB (Mass) 1.5 ng/mL (0.0-3.6) Creatine Kinase MB Relative Index 2.1 % (0-4) Troponin I Quantitative < 0.017 ng/mL (0.000-0.055) BM-Gly-G-Type Natriuretic Peptide 2632 pg/mL (0-124) Total Protein 7.2 g/dL (6.4-8.2) Albumin 3.5 g/dL (3.4-5.0) Salicylates Level < 2.8 mg/dL (2.8-20.0) Salicylate Last Dose Date Unknown Salicylate Last Dose Time Unknown Acetaminophen Level < 2 mcg/ml (10-30) Acetaminophen Last Dose Date Unknown Acetaminophen Last Dose Time Unknown Ethyl Alcohol Level < 10 mg/dL (0-10) Laboratory Tests Test 11/15/16 12:20 11/15/16 13:25 Urine Collection Type Unknown Urine Color Yellow Urine Clarity Clear Urine pH 5.5 Urine Specific [place] 1.015 Urine Protein 100 mg/dL (NEG-TRACE) Urine Glucose (UA) Negative mg/dL (NEG) Urine Ketones (Stick) Negative mg/dL (NEG) Urine Blood Trace (NEG) Urine Nitrite Negative (NEG) Urine Bilirubin Negative (NEG) Urine Urobilinogen Dipstick 1.0 mg/dL (0.2 mg/dL) Urine Leukocyte Esterase Trace (NEG) Urine RBC 3-5 /HPF (0-2) Urine WBC 1-4 /HPF (0-4) Urine Squamous Epithelial Cells Mod /LPF Urine Amorphous Sediment Present /HPF Urine Bacteria 0 /HPF (0-FEW) Urine Opiates Screen Neg (NEG) Urine Methadone Screen Neg (NEG) Urine Barbiturates Neg (NEG) Urine Phencyclidine Screen Neg (NEG) Urine Amphetamine/Methamphetamine Neg (NEG) Urine Benzodiazepines Screen Neg (NEG) Urine Cocaine Screen Neg (NEG) Urine Cannabinoids Screen Neg (NEG) Urine Ethyl Alcohol Neg (NEG) White Blood Count 4.6 x10^3/uL (4.0-11.0) Red Blood Count 3.62 x10^6/uL (3.50-5.40) Hemoglobin 10.4 g/dL (12.0-15.5) Hematocrit 32.8 % (36.0-47.0) Mean Corpuscular Volume 90 fL (79-100) Mean Corpuscular Hemoglobin 29 pg (25-35) Mean Corpuscular Hemoglobin Concent 32 g/dL (31-37) Red Cell Distribution Width 16.1 % (11.5-14.5) Platelet Count 136 x10^3/uL (140-400) Neutrophils (%) (Auto) 57 % (31-73) Lymphocytes (%) (Auto) 29 % (24-48) Monocytes (%) (Auto) 11 % (0-9) Eosinophils (%) (Auto) 2 % (0-3) Basophils (%) (Auto) 1 % (0-3) Neutrophils # (Auto) 2.6 x10^3uL (1.8-7.7) Lymphocytes # (Auto) 1.3 x10^3/uL (1.0-4.8) Monocytes # (Auto) 0.5 x10^3/uL (0.0-1.1) Eosinophils # (Auto) 0.1 x10^3/uL (0.0-0.7) Basophils # (Auto) 0.0 x10^3/uL (0.0-0.2) Prothrombin Time 14.8 SEC (11.7-14.0) Prothromb Time International Ratio 1.2 (0.8-1.1) Activated Partial Thromboplast Time 33 SEC (24-38) Sodium Level 143 mmol/L (136-145) Potassium Level 4.1 mmol/L (3.5-5.1) Chloride Level 108 mmol/L (98-107) Carbon Dioxide Level 28 mmol/L (21-32) Anion Gap 7 (6-14) Blood Urea Nitrogen 20 mg/dL (7-20) Creatinine 1.1 mg/dL (0.6-1.0) Estimated GFR (Cockcroft-Gault) 59.1 Glucose Level 158 mg/dL (70-99) Calcium Level 9.2 mg/dL (8.5-10.1) Magnesium Level 2.0 mg/dL (1.8-2.4) Total Bilirubin 0.7 mg/dL (0.2-1.0) Direct Bilirubin 0.3 mg/dL (0.0-0.2) Aspartate Amino Transf (AST/SGOT) 28 U/L (15-37) Alanine Aminotransferase (ALT/SGPT) 25 U/L (14-59) Alkaline Phosphatase 168 U/L (46-116) Ammonia 16 mcmol/L (11-34) Creatine Kinase 73 U/L (26-192) Creatine Kinase MB (Mass) 1.5 ng/mL (0.0-3.6) Creatine Kinase MB Relative Index 2.1 % (0-4) Troponin I Quantitative < 0.017 ng/mL (0.000-0.055) SP-Vll-K-Type Natriuretic Peptide 2632 pg/mL (0-124) Total Protein 7.2 g/dL (6.4-8.2) Albumin 3.5 g/dL (3.4-5.0) Salicylates Level < 2.8 mg/dL (2.8-20.0) Salicylate Last Dose Date Unknown Salicylate Last Dose Time Unknown Acetaminophen Level < 2 mcg/ml (10-30) Acetaminophen Last Dose Date Unknown Acetaminophen Last Dose Time Unknown Ethyl Alcohol Level < 10 mg/dL (0-10) VTE Prophylaxis Ordered VTE Prophylaxis Devices: Yes VTE Pharmacological Prophylaxi: Yes Assessment/Plan Assessment/Plan AMS, need to rule out new stroke or metabolic encephalopathy Afib, chronic dm2 h/o CAD? htn hld gerd AICD stable systolic CHF plan: fu with neuro, card will do CTA as per neuro, cannot do MRI with AICD, possible PPM too need verify home meds ssi for now no AC for 2 days as per neuro asa keep BP high for today ptot dvt ppx SW for rehab or snf JEFE WILSON MD Nov 15, 2016 16:55
[2016-11-15] MEDS: INSULIN ASPART 300 UNITS/3 ML INSULN.PEN SQ SCH (17:00)
[2016-11-15] MEDS ORDERED: ENOXAPARIN 40 MG/0.4 ML SYRINGE. SQ SCH (17:00)
--- NOTE | 2016-11-15 17:30 | PDOC2 ---
CARDIAC CONSULT DATE OF CONSULT Date of Consult DATE: 11/15/16 TIME: 16:55 REASON FOR CONSULT Reason for Consult: AFIB REFERRING PHYSICIAN Referring Physician: Otto SOURCE Source: Chart review HISTORY OF PRESENT ILLNESS HISTORY OF PRESENT ILLNESS This is a 71 yo female admitted for noted aphasia. She was at her PCPs office yesterday and was reported to be doing well per staff. She is checked by her neighbor once in a while and was checked today and found her unable to respond appropriately. It is not known how long she has been in this mental status change. Upon admission she was noted with receptive aphasia and could not make a fist to her right hand. She is currently on AFIB which she has a history of. There is a suspicion that she may not have been taking her medications particularly her coumadin as her INR is currently at 1.2. Her AFIB is rate controlled and also she has an AICD. Presently she does not appear to be in distress but because of her aphasia I was unable to obtain further information and family is not available as well. She was last seen in our office in 08/2014 and has not followed up since then. PAST MEDICAL HISTORY Cardiovascular: AFIB (with prior cardioversion), CAD, CHF, HTN, Hyperlipidemia , Other (ICM) Pulmonary: COPD, Pulmonary embolus CENTRAL NERVOUS SYSTEM: CVA GI: No pertinent hx Heme/Onc: No pertinent hx Hepatobiliary: No pertinent hx Psych: Anxiety Musculoskeletal: Osteoarthritis Rheumatologic: No pertinent hx Infectious disease: No pertinent hx ENT: No pertinent hx Renal/: Urinary Incontinence Endocrine: Diabetes (2) Dermatology: No pertinent hx PAST SURGICAL HISTORY Past Surgical History: Pacemaker (AICD), Other (PCI/stent to LM) FAMILY HISTORY Family History: Coronary Artery Disease SOCIAL HISTORY Smoke: No ALCOHOL: none Drugs: None Lives: Alone CURRENT MEDICATIONS CURRENT MEDICATIONS Current Medications Medications (Trade) Dose Ordered Sig/Luis Route PRN Reason Start Time Stop Time Status Last Admin Dose Admin Iohexol (Omnipaque 350 Mg/ml) 60 ml 1X ONCE IV 11/15/16 16:30 11/15/16 16:31 DC 11/15/16 16:40 ALLERGIES ALLERGIES: Coded Allergies: amlodipine (Verified Allergy, Intermediate, 12/19/13) morphine (Verified Allergy, Intermediate, hallucinations, 12/19/13) ROS Review of System unobtainable due to aphasia PHYSICAL EXAM General: Alert, No acute distress HEENT: Atraumatic, Mucous membr. moist/pink Lungs: Other (basilar crackles) Heart: Normal S1, Normal S2, Other (S4; AFIB rate controlled) Abdomen: Soft, No tenderness Extremities: No cyanosis, No edema Skin: No breakdown, No significant lesion Neuro: Other (unable to make a fist to right hand, receptive aphasia) Psych/Mental Status: Other MUSCULOSKELETAL: Osteoarthritic changes both hands VITALS VITALS Vital Signs Date Time Temp Pulse Resp B/P (MAP) Pulse Ox O2 Delivery O2 Flow Rate FiO2 11/15/16 13:20 97.6 86 18 157/98 (117) 100 Room Air 97.6 LABS Lab: Laboratory Tests Test 11/15/16 12:20 11/15/16 13:25 Urine Collection Type Unknown Urine Color Yellow Urine Clarity Clear Urine pH 5.5 Urine Specific [place] 1.015 Urine Protein 100 mg/dL (NEG-TRACE) Urine Glucose (UA) Negative mg/dL (NEG) Urine Ketones (Stick) Negative mg/dL (NEG) Urine Blood Trace (NEG) Urine Nitrite Negative (NEG) Urine Bilirubin Negative (NEG) Urine Urobilinogen Dipstick 1.0 mg/dL (0.2 mg/dL) Urine Leukocyte Esterase Trace (NEG) Urine RBC 3-5 /HPF (0-2) Urine WBC 1-4 /HPF (0-4) Urine Squamous Epithelial Cells Mod /LPF Urine Amorphous Sediment Present /HPF Urine Bacteria 0 /HPF (0-FEW) Urine Opiates Screen Neg (NEG) Urine Methadone Screen Neg (NEG) Urine Barbiturates Neg (NEG) Urine Phencyclidine Screen Neg (NEG) Urine Amphetamine/Methamphetamine Neg (NEG) Urine Benzodiazepines Screen Neg (NEG) Urine Cocaine Screen Neg (NEG) Urine Cannabinoids Screen Neg (NEG) Urine Ethyl Alcohol Neg (NEG) White Blood Count 4.6 x10^3/uL (4.0-11.0) Red Blood Count 3.62 x10^6/uL (3.50-5.40) Hemoglobin 10.4 g/dL (12.0-15.5) Hematocrit 32.8 % (36.0-47.0) Mean Corpuscular Volume 90 fL (79-100) Mean Corpuscular Hemoglobin 29 pg (25-35) Mean Corpuscular Hemoglobin Concent 32 g/dL (31-37) Red Cell Distribution Width 16.1 % (11.5-14.5) Platelet Count 136 x10^3/uL (140-400) Neutrophils (%) (Auto) 57 % (31-73) Lymphocytes (%) (Auto) 29 % (24-48) Monocytes (%) (Auto) 11 % (0-9) Eosinophils (%) (Auto) 2 % (0-3) Basophils (%) (Auto) 1 % (0-3) Neutrophils # (Auto) 2.6 x10^3uL (1.8-7.7) Lymphocytes # (Auto) 1.3 x10^3/uL (1.0-4.8) Monocytes # (Auto) 0.5 x10^3/uL (0.0-1.1) Eosinophils # (Auto) 0.1 x10^3/uL (0.0-0.7) Basophils # (Auto) 0.0 x10^3/uL (0.0-0.2) Prothrombin Time 14.8 SEC (11.7-14.0) Prothromb Time International Ratio 1.2 (0.8-1.1) Activated Partial Thromboplast Time 33 SEC (24-38) Sodium Level 143 mmol/L (136-145) Potassium Level 4.1 mmol/L (3.5-5.1) Chloride Level 108 mmol/L (98-107) Carbon Dioxide Level 28 mmol/L (21-32) Anion Gap 7 (6-14) Blood Urea Nitrogen 20 mg/dL (7-20) Creatinine 1.1 mg/dL (0.6-1.0) Estimated GFR (Cockcroft-Gault) 59.1 Glucose Level 158 mg/dL (70-99) Calcium Level 9.2 mg/dL (8.5-10.1) Magnesium Level 2.0 mg/dL (1.8-2.4) Total Bilirubin 0.7 mg/dL (0.2-1.0) Direct Bilirubin 0.3 mg/dL (0.0-0.2) Aspartate Amino Transf (AST/SGOT) 28 U/L (15-37) Alanine Aminotransferase (ALT/SGPT) 25 U/L (14-59) Alkaline Phosphatase 168 U/L (46-116) Ammonia 16 mcmol/L (11-34) Creatine Kinase 73 U/L (26-192) Creatine Kinase MB (Mass) 1.5 ng/mL (0.0-3.6) Creatine Kinase MB Relative Index 2.1 % (0-4) Troponin I Quantitative < 0.017 ng/mL (0.000-0.055) OM-Rvm-A-Type Natriuretic Peptide 2632 pg/mL (0-124) Total Protein 7.2 g/dL (6.4-8.2) Albumin 3.5 g/dL (3.4-5.0) Salicylates Level < 2.8 mg/dL (2.8-20.0) Salicylate Last Dose Date Unknown Salicylate Last Dose Time Unknown Acetaminophen Level < 2 mcg/ml (10-30) Acetaminophen Last Dose Date Unknown Acetaminophen Last Dose Time Unknown Ethyl Alcohol Level < 10 mg/dL (0-10) ECHOCARDIOGRAM ECHOCARDIOGRAM <Conclusion> The systolic function is mildly impaired. Left ventricle ejection fraction is 45% Doppler and Color-flow revealed trace mitral regurgitation. Doppler and Color Flow revealed trace to mild tricuspid regurgitation. Doppler and Color Flow revealed trace pulmonic valvular regurgitation. DATE: 08/29/13 1601 HEART CATH HEART CATH Conclusion 1. 70% stenosis involving the left main coronary artery 2. Successful PCI/drug eluting stent placement to the left main coronary artery 3. Normal left ventricle systolic function with ejection fraction estimated at 65% 4. No mitral regurgitation. No aortic stenosis. Recommendations 1. Aspirin 325 mg daily 2. Plavix 75 mg daily for preferably one year 3. Cardiovascular risk factor modification DATE: 08/29/13 1648 ASSESSMENT/PLAN ASSESSMENT/PLAN 1. AFIB: rate controlled chronic vs paroxysmal 2. Acute CVA: Prior hx with new finding-notable for aphasia, RUE weakness. 3. CAD: S/P PCI/DILCIA to LM 08/2013 4. ICM with AICD ([employer]). compensated 5. Accelerated HTN 6. HLP 7. DM2 8. Possible noncompliance: INR at 1.2 with coumadin therapy. Last f/u in our office 08/2014. Unknown if following up with different outpt de alcholizer Recommendations 1. TTE with bubble study. Will interrogate device. 2. Anticoagulation start once cleared by neurology. Prior records showed she was on pradaxa then coumadin. On PO ASA, if unable to swallow then consider rectal. 3. Per review pt was on toprol 100 mg and Dig[address] Will place on metoprolol IV. Labetalol IV PRN. If any refractory SVTs then will add Dig 4. Will need to verify swallowing safety per protocol prior to start of po meds. 5. Lipid panel, TSH. 6. Further secondary prevention measures once PO safety verified. Problems: GEOVANNY UGALDE APRN Nov 15, 2016 17:30
[2016-11-15 18:21] VITALS: BP 179/96
[2016-11-15] MEDS: IV NORMAL SALINE 1000ML BAG 1,000 ML IV SCH (18:30)
[2016-11-15] MEDS: METOPROLOL TARTRATE 5 MG/5 ML VIAL. IVP SCH (18:36)
[2016-11-15 19:15] VITALS: BP 146/91
[2016-11-15 23:15] VITALS: BP 167/96
[2016-11-16] VITALS (7 sets, daily range): BP systolic 119–169; BP diastolic 63–108
[2016-11-16] MEDS: METOPROLOL TARTRATE 5 MG/5 ML VIAL. IVP SCH ×3 (00:35→11:28)
[2016-11-16] MEDS ORDERED: ASPI-612 PO (03:27)
[2016-11-16] MEDS ORDERED: FURO40TA4 PO (03:27)
[2016-11-16] MEDS ORDERED: INSU100I27 SQ (03:27)
[2016-11-16] MEDS ORDERED: DIGO125T PO (03:27)
[2016-11-16] MEDS ORDERED: HYDR-2758 PO (03:27)
[2016-11-16] MEDS ORDERED: METH-364 PO (03:27)
[2016-11-16] MEDS ORDERED: OMEP20CA9 PO (03:27)
[2016-11-16] MEDS ORDERED: ASCO10002 PO (03:27)
[2016-11-16] MEDS ORDERED: ATOR40TA59 PO (03:27)
[2016-11-16] MEDS ORDERED: METO100T11 PO (03:27)
[2016-11-16] MEDS ORDERED: diltiazem (03:27)
[2016-11-16] MEDS ORDERED: ONDA4TAB11 PO (03:27)
[2016-11-16] MEDS ORDERED: CARB15DR3 EACHEYE (03:27)
[2016-11-16] MEDS ORDERED: INSU100I17 SQ (03:27)
[2016-11-16] MEDS ORDERED: MULT1TAB52 PO (03:27)
[2016-11-16] MEDS ORDERED: SPIR25TA3 PO (03:27)
[2016-11-16] MEDS ORDERED: POTASSIUM CHLO10 MEQ PO (03:27)
[2016-11-16 04:15] LABS: BASO # 0.1 x10^3/uL (0.0-0.2); BASO % 1 % (0-3); EOS % 2 % (0-3); HEMATOCRIT 34.4 % (36.0-47.0); LYMPH # 1.4 x10^3/uL (1.0-4.8); LYMPH % 23 % (24-48); MEAN CORPUSCULAR HEMOGLOBIN 29 pg (25-35); MEAN CORPUSCULAR HGB CONC 32 g/dL (31-37); MEAN CORPUSCULAR VOLUME 90 fL (79-100); MONO % 10 % (0-9); NEUT % 65 % (31-73); PLATELET COUNT 136 x10^3/uL (140-400); RED BLOOD COUNT 3.83 x10^6/uL (3.50-5.40); WHITE BLOOD COUNT 6.2 x10^3/uL (4.0-11.0)
[2016-11-16 04:25] LABS: CALCIUM 8.8 mg/dL (8.5-10.1); CREATININE 1.1 mg/dL (0.6-1.0); GFR 59.1; POTASSIUM 4.5 mmol/L (3.5-5.1)
[2016-11-16 05:17] LABS: CHOLESTEROL/HDL RATIO 1.6
[2016-11-16] MEDS ORDERED: ASPIRIN ENTERIC COATED 325 MG TABLET.DR. PO SCH (08:00)
--- NOTE | 2016-11-16 08:45 | RAD ---
CT angiography head 11/15/2016 at 1642 hours Indication: Confusion, difficulty cooperating Comparison: CT head 11/15/2016 Technique: Multiple axial CT images of the head were obtained after the administration of intravenous contrast for evaluation of the [place] vasculature. 60 mL of Omnipaque 350 was administered intravenously. Coronal and sagittal reformats are provided as well as 3-D reconstructions. Findings: Vascular findings: Atherosclerotic calcification is identified involving the cavernous segments of the internal carotid arteries bilaterally. There is at least moderate stenosis of the distal right internal carotid artery involving the cavernous segment. M1 segments and middle cerebral artery branches are normal in appearance. The anterior cerebral arteries are normal. Anterior communicating artery is present. Vertebral arteries are codominant. Mild atherosclerotic obscuration is identified involving the intracranial vertebral segments. There is mild narrowing of the distal right vertebral artery. Basilar artery is normal with bilateral superior cerebellar arteries identified. P! Segments are present bilaterally. [place] is complete. Posterior intracerebral arteries are present. No evidence for aneurysm, vascular malformation or large vessel vascular occlusion. Nonvascular findings: There is hypoattenuation in the left frontal lobe compatible with remote infarct. Lacunar infarcts are noted in the basal ganglia bilaterally. There is no acute intracranial hemorrhage. Ventricles, sulci and basal cisterns are normal. No mass, mass effect or midline shift. Low-attenuation in the periventricular white matter is compatible with chronic small vessel ischemic disease. Right lung is replacement noted. Otherwise, the visualized orbits are normal. Paranasal sinuses and mastoid air cells are well aerated. Osseous calvaria is normal. Scalp is normal. Impression: 1. Atherosclerotic calcification is noted in the cavernous segments of the internal carotid arteries bilaterally with at least moderate stenosis involving the cavernous segment of the right internal carotid artery. No large vessel occlusion is identified. 2. Remote infarcts noted in the left frontal lobe and bilateral basal ganglia. 3. No acute intracranial hemorrhage. PQRS Compliance Statement: One or more of the following individualized dose reduction techniques were utilized for this examination: 1. Automated exposure control 2. Adjustment of the mA and/or kV according to patient size 3. Use of iterative reconstruction technique
[2016-11-16] MEDS ORDERED: ENOXAPARIN 30 MG/0.3 ML SYRINGE. SQ SCH (09:00)
[2016-11-16] MEDS: INSULIN ASPART 300 UNITS/3 ML INSULN.PEN SQ SCH ×3 (09:23→16:12)
[2016-11-16] MEDS ORDERED: DEXTROSE ORAL GEL 15 GM TUBE. PO PRN (09:30)
[2016-11-16] MEDS: IV NORMAL SALINE 1000ML BAG 1,000 ML IV SCH (09:34)
[2016-11-16] MEDS ORDERED: hydrALAZINE 20 MG/ML VIAL. IVP PRN (10:00)
--- NOTE | 2016-11-16 12:55 | PDOC ---
CARDIO Progress Notes Date and Time Date of Service 11/16/2016 Time of Evaluation 1130 Subjective Subjective: Other (sitting up appears not in distress, aphasic) Vitals Vitals Vital Signs Date Time Temp Pulse Resp B/P (MAP) Pulse Ox O2 Delivery O2 Flow Rate FiO2 11/16/16 11:28 86 163/108 11/16/16 11:00 97.7 18 97 Room Air 97.7 Weight Weight [ ] Input and Output Intake and Output Intake and Output 11/16/16 06:59 Intake Total 839 ml Balance 839 ml IV Total 839 ml # Voids 2 Laboratory Labs Laboratory Tests Test 11/15/16 13:25 11/15/16 18:05 11/15/16 21:25 11/16/16 03:39 White Blood Count 4.6 x10^3/uL (4.0-11.0) 6.2 x10^3/uL (4.0-11.0) Red Blood Count 3.62 x10^6/uL (3.50-5.40) 3.83 x10^6/uL (3.50-5.40) Hemoglobin 10.4 g/dL (12.0-15.5) 11.0 g/dL (12.0-15.5) Hematocrit 32.8 % (36.0-47.0) 34.4 % (36.0-47.0) Mean Corpuscular Volume 90 fL (79-100) 90 fL (79-100) Mean Corpuscular Hemoglobin 29 pg (25-35) 29 pg (25-35) Mean Corpuscular Hemoglobin Concent 32 g/dL (31-37) 32 g/dL (31-37) Red Cell Distribution Width 16.1 % (11.5-14.5) 16.0 % (11.5-14.5) Platelet Count 136 x10^3/uL (140-400) 136 x10^3/uL (140-400) Neutrophils (%) (Auto) 57 % (31-73) 65 % (31-73) Lymphocytes (%) (Auto) 29 % (24-48) 23 % (24-48) Monocytes (%) (Auto) 11 % (0-9) 10 % (0-9) Eosinophils (%) (Auto) 2 % (0-3) 2 % (0-3) Basophils (%) (Auto) 1 % (0-3) 1 % (0-3) Neutrophils # (Auto) 2.6 x10^3uL (1.8-7.7) 4.0 x10^3uL (1.8-7.7) Lymphocytes # (Auto) 1.3 x10^3/uL (1.0-4.8) 1.4 x10^3/uL (1.0-4.8) Monocytes # (Auto) 0.5 x10^3/uL (0.0-1.1) 0.6 x10^3/uL (0.0-1.1) Eosinophils # (Auto) 0.1 x10^3/uL (0.0-0.7) 0.1 x10^3/uL (0.0-0.7) Basophils # (Auto) 0.0 x10^3/uL (0.0-0.2) 0.1 x10^3/uL (0.0-0.2) Prothrombin Time 14.8 SEC (11.7-14.0) Prothromb Time International Ratio 1.2 (0.8-1.1) Activated Partial Thromboplast Time 33 SEC (24-38) Sodium Level 143 mmol/L (136-145) 143 mmol/L (136-145) Potassium Level 4.1 mmol/L (3.5-5.1) 4.5 mmol/L (3.5-5.1) Chloride Level 108 mmol/L (98-107) 108 mmol/L (98-107) Carbon Dioxide Level 28 mmol/L (21-32) 27 mmol/L (21-32) Anion Gap 7 (6-14) 8 (6-14) Blood Urea Nitrogen 20 mg/dL (7-20) 17 mg/dL (7-20) Creatinine 1.1 mg/dL (0.6-1.0) 1.1 mg/dL (0.6-1.0) Estimated GFR (Cockcroft-Gault) 59.1 59.1 Glucose Level 158 mg/dL (70-99) 89 mg/dL (70-99) Calcium Level 9.2 mg/dL (8.5-10.1) 8.8 mg/dL (8.5-10.1) Magnesium Level 2.0 mg/dL (1.8-2.4) Total Bilirubin 0.7 mg/dL (0.2-1.0) Direct Bilirubin 0.3 mg/dL (0.0-0.2) Aspartate Amino Transf (AST/SGOT) 28 U/L (15-37) Alanine Aminotransferase (ALT/SGPT) 25 U/L (14-59) Alkaline Phosphatase 168 U/L (46-116) Ammonia 16 mcmol/L (11-34) Creatine Kinase 73 U/L (26-192) Creatine Kinase MB (Mass) 1.5 ng/mL (0.0-3.6) Creatine Kinase MB Relative Index 2.1 % (0-4) Troponin I Quantitative < 0.017 ng/mL (0.000-0.055) < 0.017 ng/mL (0.000-0.055) 0.023 ng/mL (0.000-0.055) ZL-Gdr-A-Type Natriuretic Peptide 2632 pg/mL (0-124) Total Protein 7.2 g/dL (6.4-8.2) Albumin 3.5 g/dL (3.4-5.0) Thyroid Stimulating Hormone (TSH) 5.154 uIU/mL (0.358-3.74) Salicylates Level < 2.8 mg/dL (2.8-20.0) Salicylate Last Dose Date Unknown Salicylate Last Dose Time Unknown Acetaminophen Level < 2 mcg/ml (10-30) Acetaminophen Last Dose Date Unknown Acetaminophen Last Dose Time Unknown Ethyl Alcohol Level < 10 mg/dL (0-10) Glucose (Fingerstick) 103 mg/dL (70-99) Triglycerides Level 46 mg/dL (0-150) Cholesterol Level 153 mg/dL (0-200) LDL Cholesterol, Calculated 50 mg/dL (0-100) VLDL Cholesterol, Calculated 9 mg/dL (0-40) Non-HDL Cholesterol Calculated 59 mg/dL (0-129) HDL Cholesterol 94 mg/dL (40-60) Cholesterol/HDL Ratio 1.6 Free Thyroxine 1.11 ng/dL (0.76-1.46) Test 11/16/16 09:09 11/16/16 11:45 Glucose (Fingerstick) 74 mg/dL (70-99) 78 mg/dL (70-99) Physical Exam HEENT: Neck Supple W Full Motion Chest: Symmetric LUNGS: Clear to Auscultation Heart: S1S2, irregularly irregular (AFIB) Abdomen: Soft N/T Extremities: No Edema, No Calf Tenderness, Other (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 AFIB: rate controlled likely chronic 2. 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 CAD: S/P PCI/DILCIA to LM 08/2013. No cardiac symptoms. 4. ICM with AICD ([employer]). compensated. Device on VVI so no atrial diagnostics. Rate controlled, normal function/no therapies/leads stable. Battery life 7 yrs. 5. Accelerated HTN: labile 6. HLP: controlled 7. DM2: BG well too controlled. BG 70s. Defer to PCP 8. Possible noncompliance: Unknown if following up with different outpt curriculum director. Per daughter pt has been off coumadin for a month 9. Hx of Hyperthyroidism? per review pt was on Tapazole. TSH 5s. Defer to PCP Recommendations 1. Awaiting TTE with bubble study. 2. NOAC (xarelto) start once cleared by neurology. CrCl 48. ASA for the meantime 3. Start on lopressor po and lisinopril and statin. Labetalol IV PRN. If any refractory SVTs then will add Dig. GEOVANNY UGALDE APRN Nov 16, 2016 12:55
--- NOTE | 2016-11-16 13:41 | PDOC ---
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 Prior left frontal infarct on CT, would make finding the new one on CT very difficult and she cannot have an MRI. CTA negative for significant large vessel disease. Atrial fibrillation. It turns out she was off her warfarin because of inability to regulate INR. In the past she has been on Pradexa. Note cardiology preference for Xarelto Plan Start Xarelto beginning tomorrow Hold off on yet another head CT Await echocardiogram Discontinue aspirin and Lovenox Rehabilitation modalities. The patient will need to live with someone at least temporarily because of the severe aphasia but I'm not sure that she needs inpatient rehabilitation because of the lack of motor involvement. Discussed with patient's daughter. Subjective No complaints from the patient Objective Vital Signs Date Time Temp Pulse Resp B/P (MAP) Pulse Ox O2 Delivery O2 Flow Rate FiO2 11/16/16 11:28 86 163/108 11/16/16 11:00 97.7 18 97 Room Air 97.7 Intake and Output 11/16/16 07:00 Intake Total 839 ml Balance 839 ml IV Total 839 ml # Voids 2 PHYSICAL EXAM She has expressive and receptive aphasia, does get some simple words out such as "okay." PERRL. EOMI. CN: no focal findings. Muscle tone: normal. Muscle strength: 5/5 DTR: 2+ Plantar reflex: Flexor Gait: not examined in bed. Sensory exam: no abnormal findings. No cerebellar signs elicited. Review of Relevant I have reviewed the following items kiley (where applicable) has been applied. Labs Laboratory Tests Test 11/15/16 12:20 11/15/16 13:25 11/15/16 18:05 11/15/16 21:25 Urine Collection Type Unknown Urine Color Yellow Urine Clarity Clear Urine pH 5.5 Urine Specific [place] 1.015 Urine Protein 100 mg/dL (NEG-TRACE) Urine Glucose (UA) Negative mg/dL (NEG) Urine Ketones (Stick) Negative mg/dL (NEG) Urine Blood Trace (NEG) Urine Nitrite Negative (NEG) Urine Bilirubin Negative (NEG) Urine Urobilinogen Dipstick 1.0 mg/dL (0.2 mg/dL) Urine Leukocyte Esterase Trace (NEG) Urine RBC 3-5 /HPF (0-2) Urine WBC 1-4 /HPF (0-4) Urine Squamous Epithelial Cells Mod /LPF Urine Amorphous Sediment Present /HPF Urine Bacteria 0 /HPF (0-FEW) Urine Opiates Screen Neg (NEG) Urine Methadone Screen Neg (NEG) Urine Barbiturates Neg (NEG) Urine Phencyclidine Screen Neg (NEG) Urine Amphetamine/Methamphetamine Neg (NEG) Urine Benzodiazepines Screen Neg (NEG) Urine Cocaine Screen Neg (NEG) Urine Cannabinoids Screen Neg (NEG) Urine Ethyl Alcohol Neg (NEG) White Blood Count 4.6 x10^3/uL (4.0-11.0) Red Blood Count 3.62 x10^6/uL (3.50-5.40) Hemoglobin 10.4 g/dL (12.0-15.5) Hematocrit 32.8 % (36.0-47.0) Mean Corpuscular Volume 90 fL (79-100) Mean Corpuscular Hemoglobin 29 pg (25-35) Mean Corpuscular Hemoglobin Concent 32 g/dL (31-37) Red Cell Distribution Width 16.1 % (11.5-14.5) Platelet Count 136 x10^3/uL (140-400) Neutrophils (%) (Auto) 57 % (31-73) Lymphocytes (%) (Auto) 29 % (24-48) Monocytes (%) (Auto) 11 % (0-9) Eosinophils (%) (Auto) 2 % (0-3) Basophils (%) (Auto) 1 % (0-3) Neutrophils # (Auto) 2.6 x10^3uL (1.8-7.7) Lymphocytes # (Auto) 1.3 x10^3/uL (1.0-4.8) Monocytes # (Auto) 0.5 x10^3/uL (0.0-1.1) Eosinophils # (Auto) 0.1 x10^3/uL (0.0-0.7) Basophils # (Auto) 0.0 x10^3/uL (0.0-0.2) Prothrombin Time 14.8 SEC (11.7-14.0) Prothromb Time International Ratio 1.2 (0.8-1.1) Activated Partial Thromboplast Time 33 SEC (24-38) Sodium Level 143 mmol/L (136-145) Potassium Level 4.1 mmol/L (3.5-5.1) Chloride Level 108 mmol/L (98-107) Carbon Dioxide Level 28 mmol/L (21-32) Anion Gap 7 (6-14) Blood Urea Nitrogen 20 mg/dL (7-20) Creatinine 1.1 mg/dL (0.6-1.0) Estimated GFR (Cockcroft-Gault) 59.1 Glucose Level 158 mg/dL (70-99) Calcium Level 9.2 mg/dL (8.5-10.1) Magnesium Level 2.0 mg/dL (1.8-2.4) Total Bilirubin 0.7 mg/dL (0.2-1.0) Direct Bilirubin 0.3 mg/dL (0.0-0.2) Aspartate Amino Transf (AST/SGOT) 28 U/L (15-37) Alanine Aminotransferase (ALT/SGPT) 25 U/L (14-59) Alkaline Phosphatase 168 U/L (46-116) Ammonia 16 mcmol/L (11-34) Creatine Kinase 73 U/L (26-192) Creatine Kinase MB (Mass) 1.5 ng/mL (0.0-3.6) Creatine Kinase MB Relative Index 2.1 % (0-4) Troponin I Quantitative < 0.017 ng/mL (0.000-0.055) < 0.017 ng/mL (0.000-0.055) NH-Txn-W-Type Natriuretic Peptide 2632 pg/mL (0-124) Total Protein 7.2 g/dL (6.4-8.2) Albumin 3.5 g/dL (3.4-5.0) Thyroid Stimulating Hormone (TSH) 5.154 uIU/mL (0.358-3.74) Salicylates Level < 2.8 mg/dL (2.8-20.0) Salicylate Last Dose Date Unknown Salicylate Last Dose Time Unknown Acetaminophen Level < 2 mcg/ml (10-30) Acetaminophen Last Dose Date Unknown Acetaminophen Last Dose Time Unknown Ethyl Alcohol Level < 10 mg/dL (0-10) Glucose (Fingerstick) 103 mg/dL (70-99) Test 11/16/16 03:39 11/16/16 09:09 11/16/16 11:45 White Blood Count 6.2 x10^3/uL (4.0-11.0) Red Blood Count 3.83 x10^6/uL (3.50-5.40) Hemoglobin 11.0 g/dL (12.0-15.5) Hematocrit 34.4 % (36.0-47.0) Mean Corpuscular Volume 90 fL (79-100) Mean Corpuscular Hemoglobin 29 pg (25-35) Mean Corpuscular Hemoglobin Concent 32 g/dL (31-37) Red Cell Distribution Width 16.0 % (11.5-14.5) Platelet Count 136 x10^3/uL (140-400) Neutrophils (%) (Auto) 65 % (31-73) Lymphocytes (%) (Auto) 23 % (24-48) Monocytes (%) (Auto) 10 % (0-9) Eosinophils (%) (Auto) 2 % (0-3) Basophils (%) (Auto) 1 % (0-3) Neutrophils # (Auto) 4.0 x10^3uL (1.8-7.7) Lymphocytes # (Auto) 1.4 x10^3/uL (1.0-4.8) Monocytes # (Auto) 0.6 x10^3/uL (0.0-1.1) Eosinophils # (Auto) 0.1 x10^3/uL (0.0-0.7) Basophils # (Auto) 0.1 x10^3/uL (0.0-0.2) Sodium Level 143 mmol/L (136-145) Potassium Level 4.5 mmol/L (3.5-5.1) Chloride Level 108 mmol/L (98-107) Carbon Dioxide Level 27 mmol/L (21-32) Anion Gap 8 (6-14) Blood Urea Nitrogen 17 mg/dL (7-20) Creatinine 1.1 mg/dL (0.6-1.0) Estimated GFR (Cockcroft-Gault) 59.1 Glucose Level 89 mg/dL (70-99) Calcium Level 8.8 mg/dL (8.5-10.1) Troponin I Quantitative 0.023 ng/mL (0.000-0.055) Triglycerides Level 46 mg/dL (0-150) Cholesterol Level 153 mg/dL (0-200) LDL Cholesterol, Calculated 50 mg/dL (0-100) VLDL Cholesterol, Calculated 9 mg/dL (0-40) Non-HDL Cholesterol Calculated 59 mg/dL (0-129) HDL Cholesterol 94 mg/dL (40-60) Cholesterol/HDL Ratio 1.6 Free Thyroxine 1.11 ng/dL (0.76-1.46) Glucose (Fingerstick) 74 mg/dL (70-99) 78 mg/dL (70-99) Laboratory Tests Test 11/15/16 18:05 11/15/16 21:25 11/16/16 03:39 11/16/16 09:09 Glucose (Fingerstick) 103 mg/dL (70-99) 74 mg/dL (70-99) Troponin I Quantitative < 0.017 ng/mL (0.000-0.055) 0.023 ng/mL (0.000-0.055) White Blood Count 6.2 x10^3/uL (4.0-11.0) Red Blood Count 3.83 x10^6/uL (3.50-5.40) Hemoglobin 11.0 g/dL (12.0-15.5) Hematocrit 34.4 % (36.0-47.0) Mean Corpuscular Volume 90 fL (79-100) Mean Corpuscular Hemoglobin 29 pg (25-35) Mean Corpuscular Hemoglobin Concent 32 g/dL (31-37) Red Cell Distribution Width 16.0 % (11.5-14.5) Platelet Count 136 x10^3/uL (140-400) Neutrophils (%) (Auto) 65 % (31-73) Lymphocytes (%) (Auto) 23 % (24-48) Monocytes (%) (Auto) 10 % (0-9) Eosinophils (%) (Auto) 2 % (0-3) Basophils (%) (Auto) 1 % (0-3) Neutrophils # (Auto) 4.0 x10^3uL (1.8-7.7) Lymphocytes # (Auto) 1.4 x10^3/uL (1.0-4.8) Monocytes # (Auto) 0.6 x10^3/uL (0.0-1.1) Eosinophils # (Auto) 0.1 x10^3/uL (0.0-0.7) Basophils # (Auto) 0.1 x10^3/uL (0.0-0.2) Sodium Level 143 mmol/L (136-145) Potassium Level 4.5 mmol/L (3.5-5.1) Chloride Level 108 mmol/L (98-107) Carbon Dioxide Level 27 mmol/L (21-32) Anion Gap 8 (6-14) Blood Urea Nitrogen 17 mg/dL (7-20) Creatinine 1.1 mg/dL (0.6-1.0) Estimated GFR (Cockcroft-Gault) 59.1 Glucose Level 89 mg/dL (70-99) Calcium Level 8.8 mg/dL (8.5-10.1) Triglycerides Level 46 mg/dL (0-150) Cholesterol Level 153 mg/dL (0-200) LDL Cholesterol, Calculated 50 mg/dL (0-100) VLDL Cholesterol, Calculated 9 mg/dL (0-40) Non-HDL Cholesterol Calculated 59 mg/dL (0-129) HDL Cholesterol 94 mg/dL (40-60) Cholesterol/HDL Ratio 1.6 Free Thyroxine 1.11 ng/dL (0.76-1.46) Test 11/16/16 11:45 Glucose (Fingerstick) 78 mg/dL (70-99) Medications Current Medications Ondansetron HCl (Zofran) 4 mg PRN Q8HRS PRN IV NAUSEA/VOMITING; Start 11/15/16 at 15:45; Stop 11/16/16 at 15:44 Sodium Chloride (Normal Saline Flush) 3 ml QSHIFT PRN IV AFTER MEDS AND BLOOD DRAWS; Start 11/15/16 at 16:15 Sodium Chloride 1,000 ml @ 75 mls/hr [id number] IV Last administered on 09:34; Start 11/15/16 at 16:07 Aspirin (Ecotrin) 325 mg [id number] PO Last administered on 11/16/16 11:58; Start 11/16/16 at 08:00 Labetalol HCl (Normodyne) 10 mg PRN Q10MIN PRN IV HYPERTENSION, SEE COMMENTS; Start 11/15/16 at 16:15 Acetaminophen (Tylenol) 650 mg PRN Q6HRS PRN PO FEVER; Start 11/15/16 at 16:15 ; Stop 11/15/16 at 16:47; Status DC Acetaminophen (Acetaminophen Supp) 650 mg PRN Q6HRS PRN MI FEVER; Start at 16:15 Ondansetron HCl (Zofran) 4 mg PRN Q6HRS PRN IV NAUSEA/VOMITING; Start 11/15/16 at 16:15; Status Cancel Enoxaparin Sodium (Lovenox 40mg Syringe) 40 mg Q24H SQ Last administered on 18:34; Start 11/15/16 at 17:00 Iohexol (Omnipaque 350 Mg/ml) 60 ml 1X ONCE IV Last administered on 11/15/16 16:40; Start 11/15/16 at 16:30; Stop 11/15/16 at 16:31; Status DC Acetaminophen (Tylenol) 650 mg PRN Q6HRS PRN PO FEVER; Start 11/15/16 at 16:45 ; Status Cancel Ondansetron HCl (Zofran) 4 mg PRN Q6HRS PRN IV NAUSEA/VOMITING; Start 11/15/16 at 16:45 Hydralazine HCl (Apresoline) 10 mg PRN Q4HRS PRN IVP ELEVATED BP, SEE COMMENTS ; Start 11/15/16 at 16:45; Stop 11/15/16 at 16:48; Status DC Docusate Sodium (Colace) 100 mg PRN DAILY PRN PO CONSTIPATION; Start 11/15/16 at 16:45 Insulin Aspart (NovoLOG) 0-9 UNITS TIDWMEALS SQ ; Start 11/15/16 at 17:00 Dextrose (Dextrose 50%-Water Syringe) 12.5 gm PRN Q15MIN PRN IV SEE COMMENTS; Start 11/15/16 at 16:45 Enoxaparin Sodium (Lovenox 30mg Syringe) 30 mg DAILY SQ ; Start 11/16/16 at 09: 00; Status UNV Hydralazine HCl (Apresoline) 10 mg PRN Q4HRS PRN IVP ELEVATED BP, SEE COMMENTS ; Start 11/16/16 at 10:00 Metoprolol Tartrate (Lopressor) 5 mg Q6HRS IVP Last administered on 11/16/16 11:28; Start 11/15/16 at 18:00; Stop 11/16/16 at 12:52; Status DC Glucose (Insta-Glucose) 15 gm PRN Q15MIN PRN PO LOW BLOOD SUGAR Last administered on 11/16/16t 09:57; Start 11/16/16 at 09:30 Atorvastatin Calcium (Lipitor) 20 mg QHS PO ; Start 11/16/16 at 21:00 Metoprolol Tartrate (Lopressor) 50 mg BID PO ; Start 11/16/16 at 21:00 Lisinopril (Prinivil) 10 mg DAILY PO ; Start 11/16/16 at 13:30 Active Scripts Active Reported Vitamin C (Ascorbic Acid) 1,000 Mg Tablet 1,000 Mg PO DAILY Spironolactone 25 Mg Tablet 0.5 Tab PO DAILY Potassium Chloride 10 Meq Capsule.er 10 Meq PO DAILY Ondansetron Hcl 4 Mg Tablet 1 Tab PO PRN Q6HRS PRN Omeprazole 20 Mg Capsule. 1 Cap PO DAILY Multivitamins (Multivitamin) 1 Each Tablet 1 Tab PO DAILY Metoprolol Succinate ( Xl ) (Metoprolol Succinate) 100 Mg Tab.er.24h 1 Tab PO BID Methimazole 10 Mg Tablet 10 Mg PO BID Levemir Flextouch (Insulin Detemir) 100 Unit/1 Ml Insuln.pen 10 Unit SQ HS Novolog Flexpen (Insulin Aspart) 100 Unit/1 Ml Insuln.pen 0 SQ Hydrocodone-Apap 5-325 (Hydrocodone Bit/Acetaminophen) 1 Each Tablet 1 Tab PO PRN Q6HRS PRN Furosemide 40 Mg Tablet 1 Tab PO DAILY Digoxin 125 Mcg Tablet 1 Tab PO DAILY [diltiazem] Refresh Optive Eye Drops (Carboxymethylcellulos/Glycerin) 15 Ml Drops 1 Drop EACHEYE QID PRN Atorvastatin Calcium 40 Mg Tablet 40 Mg PO HS Aspirin Ec (Aspirin) 81 Mg Tablet. 1 Tab PO DAILY Vitals/I & O Vital Sign - Last 24 Hours 11/15/16 11/15/16 11/15/16 11/15/16 14:00 14:30 15:00 15:30 Pulse 82 88 72 78 Resp 17 18 17 16 B/P (MAP) 179/98 (125) 180/113 (135) 164/108 (126) 175/113 (133) Pulse Ox 100 99 99 99 O2 Delivery Room Air 11/15/16 11/15/16 11/15/16 11/15/16 16:00 16:30 17:00 18:21 Temp 97.3 97.3 Pulse 100 74 80 74 Resp 15 16 14 14 B/P (MAP) 190/115 (140) 165/91 (115) 160/97 (118) 179/96 (123) Pulse Ox 99 99 99 99 O2 Delivery Room Air Room Air 11/15/16 11/15/16 11/15/16 11/15/16 18:36 19:14 19:15 20:00 Temp 97.3 97.3 Pulse 63 Resp 18 B/P (MAP) 191/102 146/91 (109) Pulse Ox 99 O2 Delivery Room Air Room Air Room Air 11/15/16 11/16/16 11/16/16 11/16/16 23:15 00:35 03:10 05:58 Temp 98.4 97.9 98.4 97.9 Pulse 76 94 76 72 Resp 14 16 B/P (MAP) 167/96 (119) 167/96 163/91 (115) 153/92 Pulse Ox 100 98 O2 Delivery Room Air Room Air 11/16/16 11/16/16 11/16/16 11/16/16 07:00 08:00 11:00 11:28 Temp 98.6 97.7 98.6 97.7 Pulse 82 77 86 Resp 14 18 B/P (MAP) 131/84 (100) 163/108 (126) 163/108 Pulse Ox 97 97 O2 Delivery Room Air Room Air Room Air Intake and Output 11/15/16 11/15/16 11/16/16 15:00 23:00 07:00 Intake Total 839 ml Balance 839 ml Images Echo pending CTA: Findings: Vascular findings: Atherosclerotic calcification is identified involving the cavernous segments of the internal carotid arteries bilaterally. There is at least moderate stenosis of the distal right internal carotid artery involving the cavernous segment. M1 segments and middle cerebral artery branches are normal in appearance. The anterior cerebral arteries are normal. Anterior communicating artery is present. Vertebral arteries are codominant. Mild atherosclerotic obscuration is identified involving the intracranial vertebral segments. There is mild narrowing of the distal right vertebral artery. Basilar artery is normal with bilateral superior cerebellar arteries identified. P! Segments are present bilaterally. [place] of [place] is complete. Posterior intracerebral arteries are present. No evidence for aneurysm, vascular malformation or large vessel vascular occlusion. Nonvascular findings: There is hypoattenuation in the left frontal lobe compatible with remote infarct. Lacunar infarcts are noted in the basal ganglia bilaterally. There is no acute intracranial hemorrhage. Ventricles, sulci and basal cisterns are normal. No mass, mass effect or midline shift. Low-attenuation in the periventricular white matter is compatible with chronic small vessel ischemic disease. Right lung is replacement noted. Otherwise, the visualized orbits are normal. Paranasal sinuses and mastoid air cells are well aerated. Osseous calvaria is normal. Scalp is normal. Impression: 1. Atherosclerotic calcification is noted in the cavernous segments of the internal carotid arteries bilaterally with at least moderate stenosis involving the cavernous segment of the right internal carotid artery. No large vessel occlusion is identified. 2. Remote infarcts noted in the left frontal lobe and bilateral basal ganglia. 3. No acute intracranial hemorrhage. ANUP BRITTON MD Nov 16, 2016 13:41
--- NOTE | 2016-11-16 13:54 | PDOC ---
PROGRESS NOTES Chief Complaint Chief Complaint AMS, with receptive aphasia, likely 2/2 a new stroke Afib, chronic, off warfarin for 1 month since inability to monitor INR dm2 h/o CAD? htn hld gerd AICD stable systolic CHF plan: fu with neuro, card CT neg. CTA neg. cannot do MRI with AICD/PPM RESUME home meds. BP controlled ok for now, slightly high ssi for now xarelto from 11/17 dc asa, lovenox ptot dvt ppx SW for rehab or snf swallow evaluated, ok to take full liquid, IVF for now, wean soon History of Present Illness History of Present Illness receptive aphasia, not communicateble. Vitals Vitals Vital Signs Date Time Temp Pulse Resp B/P (MAP) Pulse Ox O2 Delivery O2 Flow Rate FiO2 11/16/16 11:28 86 163/108 11/16/16 11:00 97.7 18 97 Room Air 97.7 Physical Exam Physical Exam cannot answer my question or follow commands. General: Alert, No acute distress Heart: Normal S1, Normal S2, Other (S4; AFIB rate controlled) Lungs: Clear, Other Abdomen: Soft, No tenderness Extremities: No cyanosis, No edema Skin: No breakdown, No significant lesion Labs LABS Laboratory Tests Test 11/15/16 18:05 11/15/16 21:25 11/16/16 03:39 11/16/16 09:09 Glucose (Fingerstick) 103 mg/dL (70-99) 74 mg/dL (70-99) Troponin I Quantitative < 0.017 ng/mL (0.000-0.055) 0.023 ng/mL (0.000-0.055) White Blood Count 6.2 x10^3/uL (4.0-11.0) Red Blood Count 3.83 x10^6/uL (3.50-5.40) Hemoglobin 11.0 g/dL (12.0-15.5) Hematocrit 34.4 % (36.0-47.0) Mean Corpuscular Volume 90 fL (79-100) Mean Corpuscular Hemoglobin 29 pg (25-35) Mean Corpuscular Hemoglobin Concent 32 g/dL (31-37) Red Cell Distribution Width 16.0 % (11.5-14.5) Platelet Count 136 x10^3/uL (140-400) Neutrophils (%) (Auto) 65 % (31-73) Lymphocytes (%) (Auto) 23 % (24-48) Monocytes (%) (Auto) 10 % (0-9) Eosinophils (%) (Auto) 2 % (0-3) Basophils (%) (Auto) 1 % (0-3) Neutrophils # (Auto) 4.0 x10^3uL (1.8-7.7) Lymphocytes # (Auto) 1.4 x10^3/uL (1.0-4.8) Monocytes # (Auto) 0.6 x10^3/uL (0.0-1.1) Eosinophils # (Auto) 0.1 x10^3/uL (0.0-0.7) Basophils # (Auto) 0.1 x10^3/uL (0.0-0.2) Sodium Level 143 mmol/L (136-145) Potassium Level 4.5 mmol/L (3.5-5.1) Chloride Level 108 mmol/L (98-107) Carbon Dioxide Level 27 mmol/L (21-32) Anion Gap 8 (6-14) Blood Urea Nitrogen 17 mg/dL (7-20) Creatinine 1.1 mg/dL (0.6-1.0) Estimated GFR (Cockcroft-Gault) 59.1 Glucose Level 89 mg/dL (70-99) Calcium Level 8.8 mg/dL (8.5-10.1) Triglycerides Level 46 mg/dL (0-150) Cholesterol Level 153 mg/dL (0-200) LDL Cholesterol, Calculated 50 mg/dL (0-100) VLDL Cholesterol, Calculated 9 mg/dL (0-40) Non-HDL Cholesterol Calculated 59 mg/dL (0-129) HDL Cholesterol 94 mg/dL (40-60) Cholesterol/HDL Ratio 1.6 Free Thyroxine 1.11 ng/dL (0.76-1.46) Test 11/16/16 11:45 Glucose (Fingerstick) 78 mg/dL (70-99) Review of Systems Review of Systems no fever, chills, sob or chest pain Assessment and Plan Assessmemt and Plan Problems Medical Problems: (1) Altered mental status Status: Acute Problems: Comment Review of Relevant I have reviewed the following items kiley (where applicable) has been applied. Labs Laboratory Tests Test 11/15/16 12:20 7/12/17 13:25 11/15/16 18:05 11/15/16 21:25 Urine Collection Type Unknown Urine Color Yellow Urine Clarity Clear Urine pH 5.5 Urine Specific [place] 1.015 Urine Protein 100 mg/dL (NEG-TRACE) Urine Glucose (UA) Negative mg/dL (NEG) Urine Ketones (Stick) Negative mg/dL (NEG) Urine Blood Trace (NEG) Urine Nitrite Negative (NEG) Urine Bilirubin Negative (NEG) Urine Urobilinogen Dipstick 1.0 mg/dL (0.2 mg/dL) Urine Leukocyte Esterase Trace (NEG) Urine RBC 3-5 /HPF (0-2) Urine WBC 1-4 /HPF (0-4) Urine Squamous Epithelial Cells Mod /LPF Urine Amorphous Sediment Present /HPF Urine Bacteria 0 /HPF (0-FEW) Urine Opiates Screen Neg (NEG) Urine Methadone Screen Neg (NEG) Urine Barbiturates Neg (NEG) Urine Phencyclidine Screen Neg (NEG) Urine Amphetamine/Methamphetamine Neg (NEG) Urine Benzodiazepines Screen Neg (NEG) Urine Cocaine Screen Neg (NEG) Urine Cannabinoids Screen Neg (NEG) Urine Ethyl Alcohol Neg (NEG) White Blood Count 4.6 x10^3/uL (4.0-11.0) Red Blood Count 3.62 x10^6/uL (3.50-5.40) Hemoglobin 10.4 g/dL (12.0-15.5) Hematocrit 32.8 % (36.0-47.0) Mean Corpuscular Volume 90 fL (79-100) Mean Corpuscular Hemoglobin 29 pg (25-35) Mean Corpuscular Hemoglobin Concent 32 g/dL (31-37) Red Cell Distribution Width 16.1 % (11.5-14.5) Platelet Count 136 x10^3/uL (140-400) Neutrophils (%) (Auto) 57 % (31-73) Lymphocytes (%) (Auto) 29 % (24-48) Monocytes (%) (Auto) 11 % (0-9) Eosinophils (%) (Auto) 2 % (0-3) Basophils (%) (Auto) 1 % (0-3) Neutrophils # (Auto) 2.6 x10^3uL (1.8-7.7) Lymphocytes # (Auto) 1.3 x10^3/uL (1.0-4.8) Monocytes # (Auto) 0.5 x10^3/uL (0.0-1.1) Eosinophils # (Auto) 0.1 x10^3/uL (0.0-0.7) Basophils # (Auto) 0.0 x10^3/uL (0.0-0.2) Prothrombin Time 14.8 SEC (11.7-14.0) Prothromb Time International Ratio 1.2 (0.8-1.1) Activated Partial Thromboplast Time 33 SEC (24-38) Sodium Level 143 mmol/L (136-145) Potassium Level 4.1 mmol/L (3.5-5.1) Chloride Level 108 mmol/L (98-107) Carbon Dioxide Level 28 mmol/L (21-32) Anion Gap 7 (6-14) Blood Urea Nitrogen 20 mg/dL (7-20) Creatinine 1.1 mg/dL (0.6-1.0) Estimated GFR (Cockcroft-Gault) 59.1 Glucose Level 158 mg/dL (70-99) Calcium Level 9.2 mg/dL (8.5-10.1) Magnesium Level 2.0 mg/dL (1.8-2.4) Total Bilirubin 0.7 mg/dL (0.2-1.0) Direct Bilirubin 0.3 mg/dL (0.0-0.2) Aspartate Amino Transf (AST/SGOT) 28 U/L (15-37) Alanine Aminotransferase (ALT/SGPT) 25 U/L (14-59) Alkaline Phosphatase 168 U/L (46-116) Ammonia 16 mcmol/L (11-34) Creatine Kinase 73 U/L (26-192) Creatine Kinase MB (Mass) 1.5 ng/mL (0.0-3.6) Creatine Kinase MB Relative Index 2.1 % (0-4) Troponin I Quantitative < 0.017 ng/mL (0.000-0.055) < 0.017 ng/mL (0.000-0.055) QQ-Cif-D-Type Natriuretic Peptide 2632 pg/mL (0-124) Total Protein 7.2 g/dL (6.4-8.2) Albumin 3.5 g/dL (3.4-5.0) Thyroid Stimulating Hormone (TSH) 5.154 uIU/mL (0.358-3.74) Salicylates Level < 2.8 mg/dL (2.8-20.0) Salicylate Last Dose Date Unknown Salicylate Last Dose Time Unknown Acetaminophen Level < 2 mcg/ml (10-30) Acetaminophen Last Dose Date Unknown Acetaminophen Last Dose Time Unknown Ethyl Alcohol Level < 10 mg/dL (0-10) Glucose (Fingerstick) 103 mg/dL (70-99) Test 11/16/16 03:39 11/16/16 09:09 11/16/16 11:45 White Blood Count 6.2 x10^3/uL (4.0-11.0) Red Blood Count 3.83 x10^6/uL (3.50-5.40) Hemoglobin 11.0 g/dL (12.0-15.5) Hematocrit 34.4 % (36.0-47.0) Mean Corpuscular Volume 90 fL (79-100) Mean Corpuscular Hemoglobin 29 pg (25-35) Mean Corpuscular Hemoglobin Concent 32 g/dL (31-37) Red Cell Distribution Width 16.0 % (11.5-14.5) Platelet Count 136 x10^3/uL (140-400) Neutrophils (%) (Auto) 65 % (31-73) Lymphocytes (%) (Auto) 23 % (24-48) Monocytes (%) (Auto) 10 % (0-9) Eosinophils (%) (Auto) 2 % (0-3) Basophils (%) (Auto) 1 % (0-3) Neutrophils # (Auto) 4.0 x10^3uL (1.8-7.7) Lymphocytes # (Auto) 1.4 x10^3/uL (1.0-4.8) Monocytes # (Auto) 0.6 x10^3/uL (0.0-1.1) Eosinophils # (Auto) 0.1 x10^3/uL (0.0-0.7) Basophils # (Auto) 0.1 x10^3/uL (0.0-0.2) Sodium Level 143 mmol/L (136-145) Potassium Level 4.5 mmol/L (3.5-5.1) Chloride Level 108 mmol/L (98-107) Carbon Dioxide Level 27 mmol/L (21-32) Anion Gap 8 (6-14) Blood Urea Nitrogen 17 mg/dL (7-20) Creatinine 1.1 mg/dL (0.6-1.0) Estimated GFR (Cockcroft-Gault) 59.1 Glucose Level 89 mg/dL (70-99) Calcium Level 8.8 mg/dL (8.5-10.1) Troponin I Quantitative 0.023 ng/mL (0.000-0.055) Triglycerides Level 46 mg/dL (0-150) Cholesterol Level 153 mg/dL (0-200) LDL Cholesterol, Calculated 50 mg/dL (0-100) VLDL Cholesterol, Calculated 9 mg/dL (0-40) Non-HDL Cholesterol Calculated 59 mg/dL (0-129) HDL Cholesterol 94 mg/dL (40-60) Cholesterol/HDL Ratio 1.6 Free Thyroxine 1.11 ng/dL (0.76-1.46) Glucose (Fingerstick) 74 mg/dL (70-99) 78 mg/dL (70-99) Laboratory Tests Test 11/15/16 18:05 11/15/16 21:25 11/16/16 03:39 11/16/16 09:09 Glucose (Fingerstick) 103 mg/dL (70-99) 74 mg/dL (70-99) Troponin I Quantitative < 0.017 ng/mL (0.000-0.055) 0.023 ng/mL (0.000-0.055) White Blood Count 6.2 x10^3/uL (4.0-11.0) Red Blood Count 3.83 x10^6/uL (3.50-5.40) Hemoglobin 11.0 g/dL (12.0-15.5) Hematocrit 34.4 % (36.0-47.0) Mean Corpuscular Volume 90 fL (79-100) Mean Corpuscular Hemoglobin 29 pg (25-35) Mean Corpuscular Hemoglobin Concent 32 g/dL (31-37) Red Cell Distribution Width 16.0 % (11.5-14.5) Platelet Count 136 x10^3/uL (140-400) Neutrophils (%) (Auto) 65 % (31-73) Lymphocytes (%) (Auto) 23 % (24-48) Monocytes (%) (Auto) 10 % (0-9) Eosinophils (%) (Auto) 2 % (0-3) Basophils (%) (Auto) 1 % (0-3) Neutrophils # (Auto) 4.0 x10^3uL (1.8-7.7) Lymphocytes # (Auto) 1.4 x10^3/uL (1.0-4.8) Monocytes # (Auto) 0.6 x10^3/uL (0.0-1.1) Eosinophils # (Auto) 0.1 x10^3/uL (0.0-0.7) Basophils # (Auto) 0.1 x10^3/uL (0.0-0.2) Sodium Level 143 mmol/L (136-145) Potassium Level 4.5 mmol/L (3.5-5.1) Chloride Level 108 mmol/L (98-107) Carbon Dioxide Level 27 mmol/L (21-32) Anion Gap 8 (6-14) Blood Urea Nitrogen 17 mg/dL (7-20) Creatinine 1.1 mg/dL (0.6-1.0) Estimated GFR (Cockcroft-Gault) 59.1 Glucose Level 89 mg/dL (70-99) Calcium Level 8.8 mg/dL (8.5-10.1) Triglycerides Level 46 mg/dL (0-150) Cholesterol Level 153 mg/dL (0-200) LDL Cholesterol, Calculated 50 mg/dL (0-100) VLDL Cholesterol, Calculated 9 mg/dL (0-40) Non-HDL Cholesterol Calculated 59 mg/dL (0-129) HDL Cholesterol 94 mg/dL (40-60) Cholesterol/HDL Ratio 1.6 Free Thyroxine 1.11 ng/dL (0.76-1.46) Test 11/16/16 11:45 Glucose (Fingerstick) 78 mg/dL (70-99) Medications Current Medications Ondansetron HCl (Zofran) 4 mg PRN Q8HRS PRN IV NAUSEA/VOMITING; Start 11/15/16 at 15:45; Stop 11/16/16 at 15:44 Sodium Chloride (Normal Saline Flush) 3 ml QSHIFT PRN IV AFTER MEDS AND BLOOD DRAWS; Start 11/15/16 at 16:15 Sodium Chloride 1,000 ml @ 75 mls/hr [id number] IV Last administered on 09:34; Start 11/15/16 at 16:07 Aspirin (Ecotrin) 325 mg DAILYWBKFT PO Last administered on 11/16/16 11:58; Start 11/16/16 at 08:00; Stop 11/16/16 at 13:44; Status DC Labetalol HCl (Normodyne) 10 mg PRN Q10MIN PRN IV HYPERTENSION, SEE COMMENTS; Start 11/15/16 at 16:15 Acetaminophen (Tylenol) 650 mg PRN Q6HRS PRN PO FEVER; Start 11/15/16 at 16:15 ; Stop 11/15/16 at 16:47; Status DC Acetaminophen (Acetaminophen Supp) 650 mg PRN Q6HRS PRN PA FEVER; Start at 16:15 Ondansetron HCl (Zofran) 4 mg PRN Q6HRS PRN IV NAUSEA/VOMITING; Start 11/15/16 at 16:15; Status Cancel Enoxaparin Sodium (Lovenox 40mg Syringe) 40 mg Q24H SQ Last administered on 18:34; Start 11/15/16 at 17:00; Stop 11/16/16 at 13:44; Status DC Iohexol (Omnipaque 350 Mg/ml) 60 ml 1X ONCE IV Last administered on 11/15/16 16:40; Start 11/15/16 at 16:30; Stop 11/15/16 at 16:31; Status DC Acetaminophen (Tylenol) 650 mg PRN Q6HRS PRN PO FEVER; Start 11/15/16 at 16:45 ; Status Cancel Ondansetron HCl (Zofran) 4 mg PRN Q6HRS PRN IV NAUSEA/VOMITING; Start 11/15/16 at 16:45 Hydralazine HCl (Apresoline) 10 mg PRN Q4HRS PRN IVP ELEVATED BP, SEE COMMENTS ; Start 11/15/16 at 16:45; Stop 11/15/16 at 16:48; Status DC Docusate Sodium (Colace) 100 mg PRN DAILY PRN PO CONSTIPATION; Start 11/15/16 at 16:45 Insulin Aspart (NovoLOG) 0-9 UNITS TIDWMEALS SQ ; Start 11/15/16 at 17:00 Dextrose (Dextrose 50%-Water Syringe) 12.5 gm PRN Q15MIN PRN IV SEE COMMENTS; Start 11/15/16 at 16:45 Enoxaparin Sodium (Lovenox 30mg Syringe) 30 mg DAILY SQ ; Start 11/16/16 at 09: 00; Status UNV Hydralazine HCl (Apresoline) 10 mg PRN Q4HRS PRN IVP ELEVATED BP, SEE COMMENTS ; Start 11/16/16 at 10:00 Metoprolol Tartrate (Lopressor) 5 mg Q6HRS IVP Last administered on 11/16/16t 11:28; Start 11/15/16 at 18:00; Stop 11/16/16 at 12:52; Status DC Glucose (Insta-Glucose) 15 gm PRN Q15MIN PRN PO LOW BLOOD SUGAR Last administered on 11/16/16t 09:57; Start 11/16/16 at 09:30 Atorvastatin Calcium (Lipitor) 20 mg QHS PO ; Start 11/16/16 at 21:00 Metoprolol Tartrate (Lopressor) 50 mg BID PO ; Start 11/16/16 at 21:00 Lisinopril (Prinivil) 10 mg DAILY PO ; Start 11/16/16 at 13:30 Rivaroxaban (Xarelto) 10 mg DAILYWSUP PO ; Start 11/17/16 at 17:00; Status UNV Active Scripts Active Reported Vitamin C (Ascorbic Acid) 1,000 Mg Tablet 1,000 Mg PO DAILY Spironolactone 25 Mg Tablet 0.5 Tab PO DAILY Potassium Chloride 10 Meq Capsule.er 10 Meq PO DAILY Ondansetron Hcl 4 Mg Tablet 1 Tab PO PRN Q6HRS PRN Omeprazole 20 Mg Capsule.dr 1 Cap PO DAILY Multivitamins (Multivitamin) 1 Each Tablet 1 Tab PO DAILY Metoprolol Succinate ( Xl ) (Metoprolol Succinate) 100 Mg Tab.er.24h 1 Tab PO BID Methimazole 10 Mg Tablet 10 Mg PO BID Levemir Flextouch (Insulin Detemir) 100 Unit/1 Ml Insuln.pen 10 Unit SQ HS Novolog Flexpen (Insulin Aspart) 100 Unit/1 Ml Insuln.pen 0 SQ Hydrocodone-Apap 5-325 (Hydrocodone Bit/Acetaminophen) 1 Each Tablet 1 Tab PO PRN Q6HRS PRN Furosemide 40 Mg Tablet 1 Tab PO DAILY Digoxin 125 Mcg Tablet 1 Tab PO DAILY [diltiazem] Refresh Optive Eye Drops (Carboxymethylcellulos/Glycerin) 15 Ml Drops 1 Drop EACHEYE QID PRN Atorvastatin Calcium 40 Mg Tablet 40 Mg PO HS Aspirin Ec (Aspirin) 81 Mg Tablet.dr 1 Tab PO DAILY Vitals/I & O Vital Sign - Last 24 Hours 11/15/16 11/15/16 11/15/16 11/15/16 14:00 14:30 15:00 15:30 Pulse 82 88 72 78 Resp 17 18 17 16 B/P (MAP) 179/98 (125) 180/113 (135) 164/108 (126) 175/113 (133) Pulse Ox 100 99 99 99 O2 Delivery Room Air 11/15/16 11/15/16 11/15/16 11/15/16 16:00 16:30 17:00 18:21 Temp 97.3 97.3 Pulse 100 74 80 74 Resp 15 16 14 14 B/P (MAP) 190/115 (140) 165/91 (115) 160/97 (118) 179/96 (123) Pulse Ox 99 99 99 99 O2 Delivery Room Air Room Air 11/15/16 11/15/16 11/15/16 11/15/16 18:36 19:14 19:15 20:00 Temp 97.3 97.3 Pulse 63 Resp 18 B/P (MAP) 191/102 146/91 (109) Pulse Ox 99 O2 Delivery Room Air Room Air Room Air 11/15/16 11/16/16 11/16/16 11/16/16 23:15 00:35 03:10 05:58 Temp 98.4 97.9 98.4 97.9 Pulse 76 94 76 72 Resp 14 16 B/P (MAP) 167/96 (119) 167/96 163/91 (115) 153/92 Pulse Ox 100 98 O2 Delivery Room Air Room Air 11/16/16 11/16/16 11/16/16 11/16/16 07:00 08:00 11:00 11:28 Temp 98.6 97.7 98.6 97.7 Pulse 82 77 86 Resp 14 18 B/P (MAP) 131/84 (100) 163/108 (126) 163/108 Pulse Ox 97 97 O2 Delivery Room Air Room Air Room Air Intake and Output 11/15/16 11/15/16 11/16/16 15:00 23:00 07:00 Intake Total 839 ml Balance 839 ml JEFE WILSON MD Nov 16, 2016 13:54
[2016-11-16] MEDS: LISINOPRIL 10 MG TABLET PO SCH (14:09)
[2016-11-16] MEDS ORDERED: RIVAROXABAN 15 MG TABLET. PO SCH (17:00)
--- NOTE | 2016-11-16 17:25 | CARD ---
APPROVED REPORT EXAM: Two-dimensional and M-mode echocardiogram with Doppler and color Doppler. Other Information Quality : GoodHR: 67bpm Rhythm : Atrial Fibrillation INDICATION CVA/ Atrial fibrillation Echo Enhancing Agent Indication: Rule Out Septal Defect Agent/Amount Used: Agitated Saline 8mL 2D DIMENSIONS RVDd3.2 (2.9-3.5cm)Left Atrium(2D)3.9 (1.6-4.0cm) IVSd1.3 (0.7-1.1cm)Aortic Root(2D)3.2 (2.0-3.7cm) LVDd3.8 (3.9-5.9cm)LVOT Diameter2.2 (1.8-2.4cm) PWd1.2 (0.7-1.1cm)LVDs3.0 (2.5-4.0cm) FS (%) 22.7 %SV29.4 ml Aortic Valve AoV Peak Philip.81.4cm/sAoV VTI12.9cm AO Peak GR.2.7mmHgLVOT Peak Philip.59.0cm/s AO Mean GR.2mmHgAVA (VMAX)2.87cm2 Mitral Valve MV E Peak Gr.2mmHgMV E Mean Gr.0mmHg Pulmonary Valve PV Peak Clopdxib09.6cm/s Tricuspid Valve TR P. [id number] Peak Gr.63mmHg LEFT VENTRICLE The left ventricle is normal size. There is mild concentric left ventricular hypertrophy. Left ventri janneth systolic function is mildly impaired. The Ejection Fraction is estimated at 40-45%. There is glob al hypokinesis of the left ventricle. Atrial fibrillation noted, unable to adequately assess left jean claude tricular diastolic function. No left ventricle thrombus noted on this study. There is no ventricular septal defect visualized. RIGHT VENTRICLE The right ventricle is normal size. There is normal right ventricular wall thickness. Systolic functi on is mildly reduced. There is a pacemaker lead in the right ventricle. ATRIA The left atrium is mildly dilated. The right atrium is mildly dilated. The interatrial septum is inta ct with no evidence for an atrial septal defect or patent foramen ovale as noted on 2-D or Doppler im aging. Injection of bubbles documented no interatrial shunt. AORTIC VALVE The aortic valve is mildly sclerotic. The aortic valve is trileaflet. Doppler and Color Flow revealed trace aortic regurgitation. There is no significant aortic valvular stenosis. MITRAL VALVE Mitral annular calcification is mild. The mitral valve leaflets are thickened. There is no evidence o f mitral valve prolapse. There is no mitral valve stenosis. Doppler and Color Flow revealed mild mitr al regurgitation. TRICUSPID VALVE Doppler and Color Flow revealed moderate tricuspid regurgitation. The pulmonary artery systolic press ure is estimated at 58 mmHg. PULMONIC VALVE The pulmonary valve is not well visualized but appears to opens well. Doppler and Color Flow revealed mild pulmonic valvular regurgitation. There is no pulmonic valvular stenosis by spectral Doppler. GREAT VESSELS The aortic root is normal in size. The ascending aorta is normal in size. The pulmonary artery is nor mal. The IVC is dilated and does not collapse with inspiration. PERICARDIAL EFFUSION There is no evidence of significant pericardial effusion. Critical Notification Critical Value: No <Conclusion> The left ventricle is normal size. Left ventricle systolic function is mildly impaired. The Ejection Fraction is estimated at 40-45%. There is mild concentric left ventricular hypertrophy. The interatrial septum is intact with no evidence for an atrial septal defect or patent foramen ovale as noted on 2-D or Doppler imaging. Injection of bubbles documented no interatrial shunt. There is no significant aortic valvular stenosis. Doppler and Color Flow revealed trace aortic regurgitation. Doppler and Color Flow revealed mild mitral regurgitation. Doppler and Color Flow revealed moderate tricuspid regurgitation. The pulmonary artery systolic pressure is estimated at 58 mmHg.
[2016-11-16] MEDS: METOPROLOL TART IMMED RELEASE 50 MG TABLET. PO SCH (21:00)
[2016-11-16] MEDS: ATORVASTATIN CALCIUM 20 MG TABLET PO SCH (21:18)
[2016-11-17] MEDS: IV NORMAL SALINE 1000ML BAG 1,000 ML IV SCH ×2 (01:00→07:21)
[2016-11-17 03:15] VITALS: BP 160/93
[2016-11-17 06:03] LABS: BASO % 1 % (0-3); EOS % 2 % (0-3); HEMATOCRIT 33.7 % (36.0-47.0); HEMOGLOBIN 11.1 g/dL (12.0-15.5); LYMPH # 1.6 x10^3/uL (1.0-4.8); LYMPH % 30 % (24-48); MEAN CORPUSCULAR HEMOGLOBIN 29 pg (25-35); MEAN CORPUSCULAR HGB CONC 33 g/dL (31-37); MEAN CORPUSCULAR VOLUME 88 fL (79-100); MONO % 11 % (0-9); NEUT % 57 % (31-73); PLATELET COUNT 137 x10^3/uL (140-400); RED BLOOD COUNT 3.81 x10^6/uL (3.50-5.40); RED CELL DISTRIBUTION WIDTH 16.2 % (11.5-14.5); WHITE BLOOD COUNT 5.5 x10^3/uL (4.0-11.0)
[2016-11-17 06:30] LABS: CALCIUM 8.4 mg/dL (8.5-10.1); CREATININE 1.2 mg/dL (0.6-1.0); GFR 53.4; POTASSIUM 3.9 mmol/L (3.5-5.1)
[2016-11-17 07:00] VITALS: BP 141/96
[2016-11-17] MEDS: INSULIN ASPART 300 UNITS/3 ML INSULN.PEN SQ SCH ×3 (08:00→17:00)
[2016-11-17] MEDS: METOPROLOL TART IMMED RELEASE 50 MG TABLET. PO SCH ×2 (08:30→23:02)
[2016-11-17] MEDS: ANTI-COAG MONITOR BY PHARMACY. MC PRN (09:01)
--- NOTE | 2016-11-17 10:44 | PDOC ---
PROGRESS NOTES Assessment Assessment IMPRESSION: Metabolic encephalopathy. Aphasia, improved. 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 AFib CHF, EF 40-45%. Pulmonary hypertension, PA 58 mmHg. RECOMMENDATIONS/PLAN: Continue Xaretol Continue Lipitor HS. Treat medical and cardiac diseases. Secondary stroke prevention. Echo: see above findings. HCT and CTA: No new findings. SUBJECTIVE: Speech fine. OBJECTIVE: Aphasia improved. PAST MEDICAL AND SURGICAL HISTORY: Please see H&P ALLERGY: Reviewed. MEDICATIONS: Refer to [facility] REVIEW OF SYSTEMS: See PMHx and PSHx. PHYSICAL EXAMINATION: General appearance in no acute distress. HEENT: Normocephalic and nontraumatic. Eyes, nose, ears, and throat are unremarkable. Hearing decrease. Neck is supple. No lymphadenopathy. No bruits are heard over the carotid artery. No Crepitus. Cardiovascular: S1, S2, irregular rate and rhythm. Pulmonary: Clear to auscultation bilaterally. Abdomen: Bowel sounds are positive. Abdomen is soft, nontender, and nondistended. Extremities: No rash, lesions, or edema. No restriction of range of motion NEUROLOGICAL EXAMINATION: Drowsiness. Oriented to place and person but not to time. PERRL. EOMI. CN: no focal findings. Muscle tone: within normal. Muscle strength: 4+ DTR: 2 Plantar reflex: Neutral response bilaterally Gait: not examined in bed. Sensory exam: no abnormal findings. No cerebellar signs elicited. F-T-N test fine. Objective Objective Vital Signs Date Time Temp Pulse Resp B/P (MAP) Pulse Ox O2 Delivery O2 Flow Rate FiO2 11/17/16 08:30 83 141/96 11/17/16 08:00 Room Air 11/17/16 07:00 98.1 18 98 98.1 Intake and Output 11/17/16 07:00 Intake Total 1560 ml Balance 1560 ml Intake Oral 1560 ml # Voids 4 # Bowel Movements 1 Vitals Signs Vitals VS - Last 72 Hours, by Label Date Time Temp Pulse Resp B/P (MAP) Pulse Ox O2 Delivery O2 Flow Rate FiO2 11/17/16 08:30 83 141/96 11/17/16 08:00 Room Air 11/17/16 07:00 98.1 88 18 141/96 (111) 98 Room Air 98.1 11/17/16 03:15 98.0 68 18 160/93 (115) 98 Room Air 98.0 11/16/16 23:10 97.8 80 18 128/71 (90) 97 Room Air 97.8 11/16/16 21:18 72 119/63 (81) 11/16/16 21:00 72 119/63 11/16/16 19:20 Room Air 11/16/16 19:05 98.0 68 18 166/100 (122) 98 Room Air 98.0 11/16/16 15:00 98.2 63 16 169/86 (113) 98 Room Air 98.2 11/16/16 14:09 168/99 11/16/16 11:28 86 163/108 11/16/16 11:00 97.7 77 18 163/108 (126) 97 Room Air 97.7 11/16/16 08:00 Room Air 11/16/16 07:00 98.6 82 14 131/84 (100) 97 Room Air 98.6 Laboratory Laboratory Laboratory Tests Test 11/16/16 11:45 11/16/16 15:55 11/16/16 21:14 11/17/16 04:06 Glucose (Fingerstick) 78 mg/dL (70-99) 111 mg/dL (70-99) 98 mg/dL (70-99) White Blood Count 5.5 x10^3/uL (4.0-11.0) Red Blood Count 3.81 x10^6/uL (3.50-5.40) Hemoglobin 11.1 g/dL (12.0-15.5) Hematocrit 33.7 % (36.0-47.0) Mean Corpuscular Volume 88 fL (79-100) Mean Corpuscular Hemoglobin 29 pg (25-35) Mean Corpuscular Hemoglobin Concent 33 g/dL (31-37) Red Cell Distribution Width 16.2 % (11.5-14.5) Platelet Count 137 x10^3/uL (140-400) Neutrophils (%) (Auto) 57 % (31-73) Lymphocytes (%) (Auto) 30 % (24-48) Monocytes (%) (Auto) 11 % (0-9) Eosinophils (%) (Auto) 2 % (0-3) Basophils (%) (Auto) 1 % (0-3) Neutrophils # (Auto) 3.1 x10^3uL (1.8-7.7) Lymphocytes # (Auto) 1.6 x10^3/uL (1.0-4.8) Monocytes # (Auto) 0.6 x10^3/uL (0.0-1.1) Eosinophils # (Auto) 0.1 x10^3/uL (0.0-0.7) Basophils # (Auto) 0.0 x10^3/uL (0.0-0.2) Sodium Level 142 mmol/L (136-145) Potassium Level 3.9 mmol/L (3.5-5.1) Chloride Level 107 mmol/L (98-107) Carbon Dioxide Level 26 mmol/L (21-32) Anion Gap 9 (6-14) Blood Urea Nitrogen 17 mg/dL (7-20) Creatinine 1.2 mg/dL (0.6-1.0) Estimated GFR (Cockcroft-Gault) 53.4 Glucose Level 173 mg/dL (70-99) Calcium Level 8.4 mg/dL (8.5-10.1) Test 11/17/16 07:58 Glucose (Fingerstick) 162 mg/dL (70-99) Microbiology 11/15/16 Urine Culture - Preliminary, Resulted 11/15/16 Urine Culture Result 1 (GLADYS) - Preliminary, Resulted Medication Medications Current Medications Atorvastatin Calcium (Lipitor) 20 mg QHS PO Last administered on 11/16/16 21: 18; Start 11/16/16 at 21:00 Info (Anti-Coagulation Monitoring By Pharmacy) 1 each PRN DAILY PRN MC SEE COMMENTS Last administered on 11/17/16 09:01; Start 11/16/16 at 14:00 Lisinopril (Prinivil) 10 mg DAILY PO Last administered on 11/16/16 14:09; Start 11/16/16 at 13:30 Metoprolol Tartrate (Lopressor) 50 mg BID PO Last administered on 11/17/16 08: 30; Start 11/16/16 at 21:00 Rivaroxaban (Xarelto) 15 mg DAILYWSUP PO ; Start 11/16/16 at 17:00; Stop at 17:00; Status DC Rivaroxaban (Xarelto) 15 mg DAILYWSUP PO ; Start 11/17/16 at 17:00 Comment Review of Relevant I have reviewed the following items kiley (where applicable) has been applied. JOSE DESHPANDE MD Nov 17, 2016 10:44
[2016-11-17 11:00] VITALS: BP 161/100
[2016-11-17] MEDS: LISINOPRIL 10 MG TABLET PO SCH (11:00)
--- NOTE | 2016-11-17 11:25 | PDOC ---
CARDIO Progress Notes Date and Time Date of Service 11/17/2016 Time of Evaluation 1100 Subjective Subjective: No Chest Pain, No shortness of breath, No Palpitations, No Dizziness, Other (refusing ambulation) Vitals Vitals Vital Signs Date Time Temp Pulse Resp B/P (MAP) Pulse Ox O2 Delivery O2 Flow Rate FiO2 11/17/16 11:00 71 153/102 11/17/16 08:00 Room Air 11/17/16 07:00 98.1 18 98 98.1 Weight Weight [ ] Input and Output Intake and Output Intake and Output 11/17/16 07:00 Intake Total 1560 ml Balance 1560 ml Intake Oral 1560 ml # Voids 4 # Bowel Movements 1 Laboratory Labs Laboratory Tests Test 11/16/16 11:45 11/16/16 15:55 11/16/16 21:14 11/17/16 04:06 Glucose (Fingerstick) 78 mg/dL (70-99) 111 mg/dL (70-99) 98 mg/dL (70-99) White Blood Count 5.5 x10^3/uL (4.0-11.0) Red Blood Count 3.81 x10^6/uL (3.50-5.40) Hemoglobin 11.1 g/dL (12.0-15.5) Hematocrit 33.7 % (36.0-47.0) Mean Corpuscular Volume 88 fL (79-100) Mean Corpuscular Hemoglobin 29 pg (25-35) Mean Corpuscular Hemoglobin Concent 33 g/dL (31-37) Red Cell Distribution Width 16.2 % (11.5-14.5) Platelet Count 137 x10^3/uL (140-400) Neutrophils (%) (Auto) 57 % (31-73) Lymphocytes (%) (Auto) 30 % (24-48) Monocytes (%) (Auto) 11 % (0-9) Eosinophils (%) (Auto) 2 % (0-3) Basophils (%) (Auto) 1 % (0-3) Neutrophils # (Auto) 3.1 x10^3uL (1.8-7.7) Lymphocytes # (Auto) 1.6 x10^3/uL (1.0-4.8) Monocytes # (Auto) 0.6 x10^3/uL (0.0-1.1) Eosinophils # (Auto) 0.1 x10^3/uL (0.0-0.7) Basophils # (Auto) 0.0 x10^3/uL (0.0-0.2) Sodium Level 142 mmol/L (136-145) Potassium Level 3.9 mmol/L (3.5-5.1) Chloride Level 107 mmol/L (98-107) Carbon Dioxide Level 26 mmol/L (21-32) Anion Gap 9 (6-14) Blood Urea Nitrogen 17 mg/dL (7-20) Creatinine 1.2 mg/dL (0.6-1.0) Estimated GFR (Cockcroft-Gault) 53.4 Glucose Level 173 mg/dL (70-99) Calcium Level 8.4 mg/dL (8.5-10.1) Test 11/17/16 07:58 Glucose (Fingerstick) 162 mg/dL (70-99) Microbiology Micro Microbiology 11/15/16 Urine Culture - Preliminary, Resulted 11/15/16 Urine Culture Result 1 (GLADYS) - Preliminary, Resulted Physical Exam HEENT: Neck Supple W Full Motion Chest: Symmetric LUNGS: Clear to Auscultation Heart: S1S2, irregularly irregular (AFIB) Abdomen: Soft N/T Extremities: No Edema, No Calf Tenderness, Other (able to make a rn international to right today) Neurology: alert, follow commands, other (Comprehending instructions) Assessment Assessment 1. Persistent AFIB: burst RVR today likely from missed metoprolol dose. Otherwise rate controlled 2. 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 aphasia improved 3. CAD: S/P PCI/DILCIA to 08/2013. No cardiac symptoms. 4. ICM with AICD ([place]). compensated. Normal device. TTE with EF 40-45%, global hypokinesis, mod TR, moderate pulmonary HTN, No thrombus/ASD/PFO 5. Accelerated HTN: labile 6. DM2/HLP: controlled Recommendations 1. Xarelto 15 mg po daily 2. Will reevaluate ASA use as an outpt after acute phase of CVA 3. Continue lopressor, increase lisinopril and uptitrate as warranted. Continue with secondary prevention. If refractory RVR remains then will add Dig. 4. [facility] tomorrow, f/u in office in 4 weeks. GEOVANNY UGALDE APRN Nov 17, 2016 11:25
[2016-11-17] MEDS ORDERED: ACETAMINOPHEN 325 MG TABLET. PO PRN (11:45)
[2016-11-17] MEDS ORDERED: IBUPROFEN 400 MG TABLET. PO PRN (12:15)
[2016-11-17] MEDS ORDERED: LISINOPRIL 10 MG TABLET PO ONE (13:45)
--- NOTE | 2016-11-17 14:12 | PDOC ---
PROGRESS NOTES Chief Complaint Chief Complaint AMS, with receptive aphasia, likely 2/2 a new stroke Afib, chronic, off warfarin for 1 month since inability to monitor INR dm2 h/o CAD? htn hld gerd AICD stable systolic CHF ef 405 plan: fu with neuro, card CT neg. CTA neg. cannot do MRI with AICD/PPM RESUME home meds. INCREASE lisinopril to 20mg daily, metoprolol ssi for now xarelto from 11/17 dc asa, lovenox ptot dvt ppx SW for rehab or snf swallow evaluated, dysphagia 3 diet dc iv dc tmr to SNF History of Present Illness History of Present Illness receptive aphasia, not communicateble. not improving Vitals Vitals Vital Signs Date Time Temp Pulse Resp B/P (MAP) Pulse Ox O2 Delivery O2 Flow Rate FiO2 11/17/16 11:00 97.6 71 18 161/100 (120) 97 Room Air 97.6 Physical Exam Physical Exam cannot answer my question or follow commands. General: Alert, No acute distress Heart: Normal S1, Normal S2, Other (S4; AFIB rate controlled) Lungs: Clear, Other Abdomen: Soft, No tenderness Extremities: No cyanosis, No edema Skin: No breakdown, No significant lesion Labs LABS Laboratory Tests Test 11/16/16 15:55 11/16/16 21:14 11/17/16 04:06 11/17/16 07:58 Glucose (Fingerstick) 111 mg/dL (70-99) 98 mg/dL (70-99) 162 mg/dL (70-99) White Blood Count 5.5 x10^3/uL (4.0-11.0) Red Blood Count 3.81 x10^6/uL (3.50-5.40) Hemoglobin 11.1 g/dL (12.0-15.5) Hematocrit 33.7 % (36.0-47.0) Mean Corpuscular Volume 88 fL (79-100) Mean Corpuscular Hemoglobin 29 pg (25-35) Mean Corpuscular Hemoglobin Concent 33 g/dL (31-37) Red Cell Distribution Width 16.2 % (11.5-14.5) Platelet Count 137 x10^3/uL (140-400) Neutrophils (%) (Auto) 57 % (31-73) Lymphocytes (%) (Auto) 30 % (24-48) Monocytes (%) (Auto) 11 % (0-9) Eosinophils (%) (Auto) 2 % (0-3) Basophils (%) (Auto) 1 % (0-3) Neutrophils # (Auto) 3.1 x10^3uL (1.8-7.7) Lymphocytes # (Auto) 1.6 x10^3/uL (1.0-4.8) Monocytes # (Auto) 0.6 x10^3/uL (0.0-1.1) Eosinophils # (Auto) 0.1 x10^3/uL (0.0-0.7) Basophils # (Auto) 0.0 x10^3/uL (0.0-0.2) Sodium Level 142 mmol/L (136-145) Potassium Level 3.9 mmol/L (3.5-5.1) Chloride Level 107 mmol/L (98-107) Carbon Dioxide Level 26 mmol/L (21-32) Anion Gap 9 (6-14) Blood Urea Nitrogen 17 mg/dL (7-20) Creatinine 1.2 mg/dL (0.6-1.0) Estimated GFR (Cockcroft-Gault) 53.4 Glucose Level 173 mg/dL (70-99) Calcium Level 8.4 mg/dL (8.5-10.1) Test 11/17/16 11:53 Glucose (Fingerstick) 149 mg/dL (70-99) Review of Systems Review of Systems no fever, chills, sob or chest pain Assessment and Plan Assessmemt and Plan Problems Medical Problems: (1) Altered mental status Status: Acute Problems: Comment Review of Relevant I have reviewed the following items kiley (where applicable) has been applied. Labs Laboratory Tests Test 11/15/16 18:05 11/15/16 21:25 11/16/16 03:39 11/16/16 09:09 Glucose (Fingerstick) 103 mg/dL (70-99) 74 mg/dL (70-99) Troponin I Quantitative < 0.017 ng/mL (0.000-0.055) 0.023 ng/mL (0.000-0.055) White Blood Count 6.2 x10^3/uL (4.0-11.0) Red Blood Count 3.83 x10^6/uL (3.50-5.40) Hemoglobin 11.0 g/dL (12.0-15.5) Hematocrit 34.4 % (36.0-47.0) Mean Corpuscular Volume 90 fL (79-100) Mean Corpuscular Hemoglobin 29 pg (25-35) Mean Corpuscular Hemoglobin Concent 32 g/dL (31-37) Red Cell Distribution Width 16.0 % (11.5-14.5) Platelet Count 136 x10^3/uL (140-400) Neutrophils (%) (Auto) 65 % (31-73) Lymphocytes (%) (Auto) 23 % (24-48) Monocytes (%) (Auto) 10 % (0-9) Eosinophils (%) (Auto) 2 % (0-3) Basophils (%) (Auto) 1 % (0-3) Neutrophils # (Auto) 4.0 x10^3uL (1.8-7.7) Lymphocytes # (Auto) 1.4 x10^3/uL (1.0-4.8) Monocytes # (Auto) 0.6 x10^3/uL (0.0-1.1) Eosinophils # (Auto) 0.1 x10^3/uL (0.0-0.7) Basophils # (Auto) 0.1 x10^3/uL (0.0-0.2) Sodium Level 143 mmol/L (136-145) Potassium Level 4.5 mmol/L (3.5-5.1) Chloride Level 108 mmol/L (98-107) Carbon Dioxide Level 27 mmol/L (21-32) Anion Gap 8 (6-14) Blood Urea Nitrogen 17 mg/dL (7-20) Creatinine 1.1 mg/dL (0.6-1.0) Estimated GFR (Cockcroft-Gault) 59.1 Glucose Level 89 mg/dL (70-99) Calcium Level 8.8 mg/dL (8.5-10.1) Triglycerides Level 46 mg/dL (0-150) Cholesterol Level 153 mg/dL (0-200) LDL Cholesterol, Calculated 50 mg/dL (0-100) VLDL Cholesterol, Calculated 9 mg/dL (0-40) Non-HDL Cholesterol Calculated 59 mg/dL (0-129) HDL Cholesterol 94 mg/dL (40-60) Cholesterol/HDL Ratio 1.6 Free Thyroxine 1.11 ng/dL (0.76-1.46) Test 11/16/16 11:45 11/16/16 15:55 11/16/16 21:14 11/17/16 04:06 Glucose (Fingerstick) 78 mg/dL (70-99) 111 mg/dL (70-99) 98 mg/dL (70-99) White Blood Count 5.5 x10^3/uL (4.0-11.0) Red Blood Count 3.81 x10^6/uL (3.50-5.40) Hemoglobin 11.1 g/dL (12.0-15.5) Hematocrit 33.7 % (36.0-47.0) Mean Corpuscular Volume 88 fL (79-100) Mean Corpuscular Hemoglobin 29 pg (25-35) Mean Corpuscular Hemoglobin Concent 33 g/dL (31-37) Red Cell Distribution Width 16.2 % (11.5-14.5) Platelet Count 137 x10^3/uL (140-400) Neutrophils (%) (Auto) 57 % (31-73) Lymphocytes (%) (Auto) 30 % (24-48) Monocytes (%) (Auto) 11 % (0-9) Eosinophils (%) (Auto) 2 % (0-3) Basophils (%) (Auto) 1 % (0-3) Neutrophils # (Auto) 3.1 x10^3uL (1.8-7.7) Lymphocytes # (Auto) 1.6 x10^3/uL (1.0-4.8) Monocytes # (Auto) 0.6 x10^3/uL (0.0-1.1) Eosinophils # (Auto) 0.1 x10^3/uL (0.0-0.7) Basophils # (Auto) 0.0 x10^3/uL (0.0-0.2) Sodium Level 142 mmol/L (136-145) Potassium Level 3.9 mmol/L (3.5-5.1) Chloride Level 107 mmol/L (98-107) Carbon Dioxide Level 26 mmol/L (21-32) Anion Gap 9 (6-14) Blood Urea Nitrogen 17 mg/dL (7-20) Creatinine 1.2 mg/dL (0.6-1.0) Estimated GFR (Cockcroft-Gault) 53.4 Glucose Level 173 mg/dL (70-99) Calcium Level 8.4 mg/dL (8.5-10.1) Test 11/17/16 07:58 11/17/16 11:53 Glucose (Fingerstick) 162 mg/dL (70-99) 149 mg/dL (70-99) Laboratory Tests Test 11/16/16 15:55 11/16/16 21:14 11/17/16 04:06 11/17/16 07:58 Glucose (Fingerstick) 111 mg/dL (70-99) 98 mg/dL (70-99) 162 mg/dL (70-99) White Blood Count 5.5 x10^3/uL (4.0-11.0) Red Blood Count 3.81 x10^6/uL (3.50-5.40) Hemoglobin 11.1 g/dL (12.0-15.5) Hematocrit 33.7 % (36.0-47.0) Mean Corpuscular Volume 88 fL (79-100) Mean Corpuscular Hemoglobin 29 pg (25-35) Mean Corpuscular Hemoglobin Concent 33 g/dL (31-37) Red Cell Distribution Width 16.2 % (11.5-14.5) Platelet Count 137 x10^3/uL (140-400) Neutrophils (%) (Auto) 57 % (31-73) Lymphocytes (%) (Auto) 30 % (24-48) Monocytes (%) (Auto) 11 % (0-9) Eosinophils (%) (Auto) 2 % (0-3) Basophils (%) (Auto) 1 % (0-3) Neutrophils # (Auto) 3.1 x10^3uL (1.8-7.7) Lymphocytes # (Auto) 1.6 x10^3/uL (1.0-4.8) Monocytes # (Auto) 0.6 x10^3/uL (0.0-1.1) Eosinophils # (Auto) 0.1 x10^3/uL (0.0-0.7) Basophils # (Auto) 0.0 x10^3/uL (0.0-0.2) Sodium Level 142 mmol/L (136-145) Potassium Level 3.9 mmol/L (3.5-5.1) Chloride Level 107 mmol/L (98-107) Carbon Dioxide Level 26 mmol/L (21-32) Anion Gap 9 (6-14) Blood Urea Nitrogen 17 mg/dL (7-20) Creatinine 1.2 mg/dL (0.6-1.0) Estimated GFR (Cockcroft-Gault) 53.4 Glucose Level 173 mg/dL (70-99) Calcium Level 8.4 mg/dL (8.5-10.1) Test 11/17/16 11:53 Glucose (Fingerstick) 149 mg/dL (70-99) Microbiology 11/15/16 Urine Culture - Preliminary, Resulted 11/15/16 Urine Culture Result 1 (GLADYS) - Preliminary, Resulted Medications Current Medications Ondansetron HCl (Zofran) 4 mg PRN Q8HRS PRN IV NAUSEA/VOMITING; Start 11/15/16 at 15:45; Stop 11/16/16 at 15:44; Status DC Sodium Chloride (Normal Saline Flush) 3 ml QSHIFT PRN IV AFTER MEDS AND BLOOD DRAWS; Start 11/15/16 at 16:15 Sodium Chloride 1,000 ml @ 75 mls/hr [id number] IV Last administered on 01:00; Start 11/15/16 at 16:07; Stop 11/17/16 at 12:11; Status DC Aspirin (Ecotrin) 325 mg [id number] PO Last administered on 11/16/16 11:58; Start 11/16/16 at 08:00; Stop 11/16/16 at 13:44; Status DC Labetalol HCl (Normodyne) 10 mg PRN Q10MIN PRN IV HYPERTENSION, SEE COMMENTS; Start 11/15/16 at 16:15 Acetaminophen (Tylenol) 650 mg PRN Q6HRS PRN PO FEVER; Start 11/15/16 at 16:15 ; Stop 11/15/16 at 16:47; Status DC Acetaminophen (Acetaminophen Supp) 650 mg PRN Q6HRS PRN GA FEVER; Start at 16:15; Stop 11/17/16 at 12:11; Status DC Ondansetron HCl (Zofran) 4 mg PRN Q6HRS PRN IV NAUSEA/VOMITING; Start 11/15/16 at 16:15; Status Cancel Enoxaparin Sodium (Lovenox 40mg Syringe) 40 mg Q24H SQ Last administered on 18:34; Start 11/15/16 at 17:00; Stop 11/16/16 at 13:44; Status DC Iohexol (Omnipaque 350 Mg/ml) 60 ml 1X ONCE IV Last administered on 11/15/16 16:40; Start 11/15/16 at 16:30; Stop 11/15/16 at 16:31; Status DC Acetaminophen (Tylenol) 650 mg PRN Q6HRS PRN PO FEVER; Start 11/15/16 at 16:45 ; Status Cancel Ondansetron HCl (Zofran) 4 mg PRN Q6HRS PRN IV NAUSEA/VOMITING; Start 11/15/16 at 16:45 Hydralazine HCl (Apresoline) 10 mg PRN Q4HRS PRN IVP ELEVATED BP, SEE COMMENTS ; Start 11/15/16 at 16:45; Stop 11/15/16 at 16:48; Status DC Docusate Sodium (Colace) 100 mg PRN DAILY PRN PO CONSTIPATION; Start 11/15/16 at 16:45 Insulin Aspart (NovoLOG) 0-9 UNITS TIDWMEALS SQ ; Start 11/15/16 at 17:00 Dextrose (Dextrose 50%-Water Syringe) 12.5 gm PRN Q15MIN PRN IV SEE COMMENTS; Start 11/15/16 at 16:45 Enoxaparin Sodium (Lovenox 30mg Syringe) 30 mg DAILY SQ ; Start 11/16/16 at 09: 00; Status UNV Hydralazine HCl (Apresoline) 10 mg PRN Q4HRS PRN IVP ELEVATED BP, SEE COMMENTS ; Start 11/16/16 at 10:00 Metoprolol Tartrate (Lopressor) 5 mg Q6HRS IVP Last administered on 11/16/16 11:28; Start 11/15/16 at 18:00; Stop 11/16/16 at 12:52; Status DC Glucose (Insta-Glucose) 15 gm PRN Q15MIN PRN PO LOW BLOOD SUGAR Last administered on 11/16/16 09:57; Start 11/16/16 at 09:30 Atorvastatin Calcium (Lipitor) 20 mg QHS PO Last administered on 11/16/16 21: 18; Start 11/16/16 at 21:00 Metoprolol Tartrate (Lopressor) 50 mg BID PO Last administered on 11/17/16 08: 30; Start 11/16/16 at 21:00 Lisinopril (Prinivil) 10 mg DAILY PO Last administered on 11/17/16 11:00; Start 11/16/16 at 13:30; Stop 11/17/16 at 13:37; Status DC Rivaroxaban (Xarelto) 15 mg DAILYWSUP PO ; Start 11/16/16 at 17:00; Stop at 17:00; Status DC Info (Anti-Coagulation Monitoring By Pharmacy) 1 each PRN DAILY PRN MC SEE COMMENTS Last administered on 11/17/16 09:01; Start 11/16/16 at 14:00 Rivaroxaban (Xarelto) 15 mg DAILYWSUP PO ; Start 11/17/16 at 17:00 Acetaminophen (Tylenol) 650 mg PRN Q6HRS PRN PO Pain Last administered on 11/17 11:45; Start 11/17/16 at 11:45 Ibuprofen (Motrin) 400 mg PRN Q6HRS PRN PO INFLAMMATION; Start 11/17/16 at 12: 15 Lisinopril (Prinivil) 20 mg DAILY PO ; Start 11/18/16 at 09:00 Lisinopril (Prinivil) 10 mg 1X ONCE PO ; Start 11/17/16 at 13:45; Stop at 13:46; Status DC Active Scripts Active Reported Vitamin C (Ascorbic Acid) 1,000 Mg Tablet 1,000 Mg PO DAILY Spironolactone 25 Mg Tablet 0.5 Tab PO DAILY Potassium Chloride 10 Meq Capsule.er 10 Meq PO DAILY Ondansetron Hcl 4 Mg Tablet 1 Tab PO PRN Q6HRS PRN Omeprazole 20 Mg Capsule.dr 1 Cap PO DAILY Multivitamins (Multivitamin) 1 Each Tablet 1 Tab PO DAILY Metoprolol Succinate ( Xl ) (Metoprolol Succinate) 100 Mg Tab.er.24h 1 Tab PO BID Methimazole 10 Mg Tablet 10 Mg PO BID Levemir Flextouch (Insulin Detemir) 100 Unit/1 Ml Insuln.pen 10 Unit SQ HS Novolog Flexpen (Insulin Aspart) 100 Unit/1 Ml Insuln.pen 0 SQ Hydrocodone-Apap 5-325 (Hydrocodone Bit/Acetaminophen) 1 Each Tablet 1 Tab PO PRN Q6HRS PRN Furosemide 40 Mg Tablet 1 Tab PO DAILY Digoxin 125 Mcg Tablet 1 Tab PO DAILY [diltiazem] Refresh Optive Eye Drops (Carboxymethylcellulos/Glycerin) 15 Ml Drops 1 Drop EACHEYE QID PRN Atorvastatin Calcium 40 Mg Tablet 40 Mg PO HS Aspirin Ec (Aspirin) 81 Mg Tablet.dr 1 Tab PO DAILY Vitals/I & O Vital Sign - Last 24 Hours 11/16/16 11/16/16 11/16/16 11/16/16 15:00 19:05 19:20 21:00 Temp 98.2 98.0 98.2 98.0 Pulse 63 68 72 Resp 16 18 B/P (MAP) 169/86 (113) 166/100 (122) 119/63 Pulse Ox 98 98 O2 Delivery Room Air Room Air Room Air 11/16/16 11/16/16 11/17/16 11/17/16 21:18 23:10 03:15 07:00 Temp 97.8 98.0 98.1 97.8 98.0 98.1 Pulse 72 80 68 88 Resp 18 18 18 B/P (MAP) 119/63 (81) 128/71 (90) 160/93 (115) 141/96 (111) Pulse Ox 97 98 98 O2 Delivery Room Air Room Air Room Air 11/17/16 11/17/16 11/17/16 11/17/16 08:00 08:30 11:00 11:00 Temp 97.6 97.6 Pulse 83 71 71 Resp 18 B/P (MAP) 141/96 153/102 161/100 (120) Pulse Ox 97 O2 Delivery Room Air Room Air Intake and Output 11/16/16 11/16/16 11/17/16 15:00 23:00 07:00 Intake Total 200 ml 1000 ml 360 ml Balance 200 ml 1000 ml 360 ml JEFE WILSON MD Nov 17, 2016 14:12
[2016-11-17 15:00] VITALS: BP 161/100
[2016-11-17] MEDS ORDERED: RIVAROXABAN 15 MG TABLET. PO SCH (17:00)
[2016-11-17 19:20] VITALS: BP 144/83
[2016-11-17] MEDS: DABIGATRAN ETEXILATE 150 MG CAPSULE. PO SCH (23:03)
[2016-11-17] MEDS: ATORVASTATIN CALCIUM 20 MG TABLET PO SCH (23:03)
[2016-11-17 23:40] VITALS: BP 170/99
[2016-11-18 03:00] VITALS: BP 149/86
[2016-11-18 07:30] VITALS: BP 148/90
[2016-11-18] MEDS: ANTI-COAG MONITOR BY PHARMACY. MC PRN (07:45)
[2016-11-18] MEDS: INSULIN ASPART 300 UNITS/3 ML INSULN.PEN SQ SCH ×2 (08:00→12:20)
[2016-11-18] MEDS ORDERED: LISINOPRIL 20 MG TABLET PO SCH (09:00)
[2016-11-18] MEDS: DABIGATRAN ETEXILATE 150 MG CAPSULE. PO SCH (09:24)
[2016-11-18] MEDS: METOPROLOL TART IMMED RELEASE 50 MG TABLET. PO SCH (09:25)
[2016-11-18] MEDS ORDERED: ATOR20TA58 PO (10:38)
[2016-11-18] MEDS ORDERED: DABI150C PO (10:38)
[2016-11-18] MEDS ORDERED: METO50TA2 PO (10:38)
[2016-11-18] MEDS ORDERED: LISI-334 PO (10:38)
[2016-11-18 11:00] VITALS: BP 136/91
--- NOTE | 2016-11-18 14:00 | PDOC3 ---
Discharge Summary [facility] Date of Admission: Nov 15, 2016 Discharge Date: Nov 18, 2016 Admitting Diagnosis AMS, with receptive aphasia, likely 2/2 a new stroke Afib, chronic, off warfarin for 1 month since inability to monitor INR dm2 h/o CAD? htn hld gerd AICD stable systolic CHF ef 405 Problems: Final Diagnosis Problems Medical Problems: (1) Altered mental status Status: Acute CONSULTS card neuro Brief Hospital Course Patient is a 71 year old -[place] female with h/o afib, stroke presents with status. pt cannot provide any history. when i asked her questions, she looks calm but not understanding, kept saying" i dont know, i dont know what you mean". as per ERP, pt lives alone ,her neighbor found her normal yesterday but acting abnormal today and then called EMS. Today she's confused and unable follow commands or talk appropriately. head CT showed old stroke. Afib. Cannot do MRI given PPM. CTA neg. pradaxa added for afib. pt looks very calm, but still severe receptive aphagia, slightly better. dc to SNF, gi soft diet. dc time 35min EF 40% cannot answer my question or follow commands. General: Alert, No acute distress Heart: Normal S1, Normal S2, Other (S4; AFIB rate controlled) Lungs: Clear, Other Abdomen: Soft, No tenderness Extremities: No cyanosis, No edema Skin: No breakdown, No significant lesion Patient History: Family history: Cardiovascular disease (situation) G8 BROTHER G8 BROTHER G8 BROTHER G8 BROTHER 33 FATHER 32 MOTHER G8 SISTER G8 SISTER Family history: Diabetes mellitus (situation) G8 BROTHER 33 FATHER 32 MOTHER G8 SISTER Family history: Gastrointestinal disease (situation) 32 MOTHER Family history: Hypertension (situation) G8 BROTHER G8 BROTHER G8 BROTHER G8 BROTHER 33 FATHER 32 MOTHER G8 SISTER G8 SISTER Family history: Obesity (situation) G8 BROTHER G8 BROTHER G8 BROTHER G8 BROTHER 33 FATHER 32 MOTHER G8 SISTER G8 SISTER No Family History of: Cancer confirmed (situation) Family history: Allergy Family history: Alzheimer's disease (situation) Family history: Angina (situation) Family history: Asthma Family history: Autoimmune disease (situation) Family history: Blood disorder (situation) Family history: Breast disease (situation) Family history: Cardiomyopathy (situation) Family history: Crohn's disease (situation) Family history: Depression (situation) Family history: Epilepsy (situation) Family history: Gallbladder disease (situation) Family history: Hemophilia (situation) Family history: Schizophrenia (situation) Family history: Sickle cell trait (situation) Family history: Suicide (situation) Family history: neoplasm - trachea/bronchus/lung (situation) Family history: neoplasm - urinary organ (situation) Family history: neoplasm of skin (situation) Malignant hyperthermia Sleep apnea Problems: Disposition snf CONDITION AT DISCHARGE: Improved, Stable Diet cardiac Scheduled Ascorbic Acid (Vitamin C), 1,000 MG PO DAILY, (Reported) Atorvastatin Calcium (Atorvastatin Calcium), 20 MG PO QHS Dabigatran Etexilate Mesylate (Pradaxa), 150 MG PO BID Furosemide (Furosemide), 1 TAB PO DAILY, (Reported) Lisinopril (Lisinopril), 20 MG PO DAILY Methimazole (Methimazole), 10 MG PO BID, (Reported) Metoprolol Tartrate (Metoprolol Tartrate), 50 MG PO BID Multivitamin (Multivitamins), 1 TAB PO DAILY, (Reported) Omeprazole (Omeprazole), 1 CAP PO DAILY, (Reported) Potassium Chloride (Potassium Chloride), 10 MEQ PO DAILY, (Reported) Scheduled PRN Carboxymethylcellulos/Glycerin (Refresh Optive Eye Drops), 1 DROP EACHEYE QID PRN for DRY EYE, (Reported) Ondansetron Hcl (Ondansetron Hcl), 1 TAB PO PRN Q6HRS PRN for NAUSEA, (Reported) Miscellaneous Medications Insulin Aspart (Novolog Flexpen), 0 SQ, (Reported) Discontinued Medications Amiodarone Hcl (Amiodarone Hcl), 1 TAB PO DAILY, (Reported) Ascorbic Acid (Vitamin C), 500 MG PO DAILY, (Reported) Ascorbic Acid (Vitamin C), 1,000 MG PO DAILY, (Reported) Aspirin (Aspirin), 81 MG PO DAILY, (Reported) Aspirin (Aspirin Ec), 1 TAB PO DAILY, (Reported) Atorvastatin Calcium (Atorvastatin Calcium), 40 MG PO HS, (Reported) Atorvastatin Calcium (Atorvastatin Calcium), 40 MG PO HS, (Reported) Carvedilol (Carvedilol), 25 MG PO BIDWMEALS, (Reported) Ciprofloxacin (Cipro), 500 MG PO BID, (Reported) Digoxin (Digoxin), 1 TAB PO DAILY, (Reported) Diltiazem Hcl (Cardizem Cd), 1 CAP PO DAILY, (Reported) Furosemide (Lasix), 1 TAB PO DAILY, (Reported) Hydrocodone Bit/Acetaminophen (Hydrocodone-Apap 5-325 ), 1 TAB PO Q4HRS PRN for PAIN, (Reported) Hydrocodone Bit/Acetaminophen (Hydrocodone-Apap 5-325 ), 1 TAB PO PRN Q6HRS PRN for PAIN, (Reported) Insulin Aspart (Novolog), 14 UNIT SQ TIDWMEALS, (Reported) Insulin Aspart (Novolog Flexpen), 10 UNIT SQ TIDWMEALS, (Reported) Insulin Detemir (Levemir), 38 UNIT SQ HS, (Reported) Insulin Detemir (Levemir), 32 UNIT SQ HS, (Reported) Insulin Detemir (Levemir Flextouch), 10 UNIT SQ HS, (Reported) Lisinopril (Lisinopril), 1 TAB PO DAILY, (Reported) Losartan Potassium (Losartan Potassium), 25 MG PO DAILY, (Reported) Metoprolol Succinate (Metoprolol Succinate ( Xl )), 1 TAB PO BID, (Reported) Metronidazole (Metronidazole), 1 TAB PO TID, (Reported) Nitroglycerin (NITROGLYCERIN SubLingual), 0.4 MG SL PRN Q5MIN PRN for CHEST PAIN , (Reported) Paroxetine Hcl (Paroxetine Hcl), 10 MG PO HS, (Reported) Potassium Chloride (K-Tab ER), 20 MEQ PO DAILY, (Reported) Spironolactone (Spironolactone), 0.5 TAB PO DAILY, (Reported) [diltiazem], (Reported) JEFE WILSON MD Nov 18, 2016 14:00
[2016-11-18 15:45] VITALS: BP 119/74
== END 2016-11-18 16:30 | DRG 64 ==
LOC: ER 13:15 → 2 NORTH 15:10
PROVIDERS: ADMIT Internal Medicine; ATTEND Internal Medicine
DX: I63.9 Cerebral infarction, unspecified (principal); G93.41 Metabolic encephalopathy; I48.1 Persistent atrial fibrillation; I50.20 Unspecified systolic (congestive) heart failure; R47.01 Aphasia; F41.9 Anxiety disorder, unspecified; G43.909 Migraine, unspecified, not intractable, without status migrainosus; M19.90 Unspecified osteoarthritis, unspecified site; E11.9 Type 2 diabetes mellitus without complications; E78.5 Hyperlipidemia, unspecified; I11.0 Hypertensive heart disease with heart failure; I25.5 Ischemic cardiomyopathy; E78.00 Pure hypercholesterolemia, unspecified; I25.10 Atherosclerotic heart disease of native coronary artery without angina pectoris; I27.2 Other secondary pulmonary hypertension; Z60.2 Problems related to living alone; I48.2 Chronic atrial fibrillation; K21.9 Gastro-esophageal reflux disease without esophagitis; J44.9 Chronic obstructive pulmonary disease, unspecified; Z86.711 Personal history of pulmonary embolism; Z87.11 Personal history of peptic ulcer disease; Z95.5 Presence of coronary angioplasty implant and graft; Z87.440 Personal history of urinary (tract) infections; Z95.810 Presence of automatic (implantable) cardiac defibrillator; Z81.8 Family history of other mental and behavioral disorders; Z82.0 Family history of epilepsy and other diseases of the nervous system; Z82.49 Family history of ischemic heart disease and other diseases of the circulatory system; Z82.5 Family history of asthma and other chronic lower respiratory diseases; Z83.3 Family history of diabetes mellitus; Z90.49 Acquired absence of other specified parts of digestive tract; Z90.710 Acquired absence of both cervix and uterus; Z88.5 Allergy status to narcotic agent; Z88.8 Allergy status to other drugs, medicaments and biological substances
CPT/HCPCS: 99285; C8929; 36415; 70450; 70496; 71010; 80048; 80061; 80076; 80329; 81001; 82140; 82553; 82962; 83735; 83880; 84439; 84443; 84484; 85027; 85610; 85730; 87086; 93005; A6539; G0480; G0481; J1650; J1815; J3490; J7030; Q9967; 92523; 92526; 92610; 97116; 97535